=== PATIENT | male | born 1965 | race Caucasian/White ===

== ENCOUNTER 2023-11-04 15:52 | Outpatient (OUT) | payer BC, SELFPAY ==
--- NOTE | 2023-11-04 15:54 | US_ITS ---
The [address] [address] Patient Name: KAYDEN ARMSTRONG MRN: [id number] date: 1965 Sex: M Assigned Patient Location: US Current Patient Location: Accession/Order Number: [id number] Exam Date: 11/04/2023 16:00 Report Date: 11/07/2023 05:58 At the request of: SHAUN SALTER Procedure: US chest EXAM: US chest HISTORY: subcutaneous mass R22.9 COMPARISON: None. TECHNIQUE: Percutaneous ultrasound of right chest in area of palpable lump. FINDINGS: Within the subcutaneous fat of the upper medial right anterior chest wall is a 1.2 x 1.2 x 0.7 cm oval smoothly marginated hypoechoic/heterogeneous mass without significant internal blood flow. US/US chest IMPRESSION: 1. Mass within subcutaneous fat of the upper medial anterior right chest wall which corresponds to patient's palpable lump; nonspecific but favors a lipoma. Ultrasound-guided tissue sampling could be performed if clinically indicated. Electronically authenticated by: ISAC GOFF Date: 11/07/2023 05:58
== END 2023-11-04 15:53 | disposition home or self-care (01) ==
LOC: US 15:52
PROVIDERS: PCP Internal Medicine; Visit Provider Internal Medicine
DX: R22.9 Localized swelling, mass and lump, unspecified (principal)
CPT/HCPCS: 76604

== ENCOUNTER 2023-11-25 13:21 | Outpatient (OUT) | payer BC, SELFPAY ==
--- OUTSIDE RECORDS SUMMARY | 2023-11-25 13:26 | XMS_ITS | CCD ---
Author Name Unknown Address [address] [place] [address] Organization [facility] Care Team Providers Care Sap Solution Manager Consultant Name Role Phone STONE FRITZ Admitting Unavailable STONE FRITZ Attending Unavailable QASIM FAIRCHILD Referring Unavailable QASIM FAIRCHILD Primary Care Unavailable [place] Procedure Practitioner Unavailab STONE Wick Surgeon Unavailable [place] Procedure Practitioner Unavailab BOB Gonzalez Surgeon Unavailable Qasim Fairchild Unavailable DR QASIM FAIRCHILD Attending Unavailable BALL, DR DUNN Admitting Unavailable BALL, DR DUNN Primary Care Unavailable BALL, DR DUNN Primary Care Unavailable MISC, DR MONTES Attending Unavailable MISC, DR MONTES Admitting Unavailable MISC, DR MONTES Consulting Unavailable DANIEL ZELAYA Attending Unavailable Allergies Allergy Classification Reported Allergen(s) Allergy Type Date of Onset Reaction(s) Facility (3 sources) Amoxicillin Drug Allergy Unknown [facility] [employer] Other Medications Current Medications Medication Drug Class(es) Dates Sig (Normalized) Sig (Original) Dexamethasone / Neomycin / Polymyxin B (3 sources) Aminoglycoside Antibacterial, Polymyxin-class Antibacterial, Corticosteroid Start: 04-05-2016 take 1 drop(s) into the eye(s) four times daily Maxitrol 3.5-97909-7.1 1 drop into affected eye Ophthalmic Four times a day Mar, Active Start: 04-05-2016 take 1 drop(s) into the eye(s) four times daily Maxitrol 3.5-46460-9.1 1 drop into affected eye Ophthalmic Four times a day Mar, Active doxycycline hyclate 100 mg oral capsule (2 sources) Tetracycline-class Drug Start: 10-26-2023 take 1 capsule by mouth every twelve hours Doxycycline Hyclate 100 MG 1 capsule Orally Twice a day for 7 days Sep, Active 0.5 ml ustekinumab 90 mg/ml prefilled syringe (3 sources) Interleukin-12 Antagonist, Interleukin-23 Antagonist Stelara 45 MG/0.5ML Subcutaneous Active varenicline 1 mg oral tablet (6 sources) Partial Cholinergic Nicotinic Agonist Start: 01-04-2023 Varenicline Tartrate 0.5 MG X 11 & 1 MG X 42 1 tablet Orally as directed for 30 days Dec, Active Problems Active Problems Problem Classification Problem Date Documented Da te Episodic/Chronic Acute bronchitis (1 source) Acute bronchitis due to other specified organisms Episodic E Codes: Unspecified (2 sources) Activity, underwater diving and snorkeling; Translations: [Activity, underwater diving and snorkeling] Episodic Genitourinary symptoms and ill-defined conditions (1 source) Nocturia Episodic Hyperplasia of prostate (6 sources) Nocturia due to benign prostatic hypertrophy; Translations: [Benign prostatic hyperplasia with lower urinary tract symptoms] Onset: 04-25-2018 Chronic Nausea and vomiting (2 sources) Bilious vomiting; Translations: [Bilious vomiting] Episodic Other circulatory disease (2 sources) Elevated blood-pressure reading without diagnosis of hypertension; Translations: [Elevated blood-pressure reading, without diagnosis of hypertension] Episodic Other inflammatory condition of skin (5 sources) Psoriasis; Translations: [Psoriasis, unspecified] Chronic Other inflammatory condition of skin (4 sources) Other psoriasis; Translations: [OTHER PSORIASIS] Onset: 02-12-2022 Chronic Other non-traumatic joint disorders (2 sources) Shoulder joint pain; Translations: [Pain in right shoulder] Episodic Other nutritional; endocrine; and metabolic disorders (3 sources) Lipoprotein deficiency disorder; Translations: [Lipoprotein deficiency] Chronic Other nutritional; endocrine; and metabolic disorders (3 sources) Obese class I; Translations: [Obesity, unspecified] Chronic Other nutritional; endocrine; and metabolic disorders (1 source) Obesity, unspecified Chronic Other nutritional; endocrine; and metabolic disorders (2 sources) Body mass index 30+ - obesity; Translations: [Body mass index (BMI) 30.0-30.9, adult] Chronic Other nutritional; endocrine; and metabolic disorders (2 sources) Simple obesity ; Translations: [Other obesity due to excess calories] Onset: 02-18-2014 Chronic Other skin disorders (2 sources) Disorder of skin and/or subcutaneous tissue; Translations: [Disorder of the skin and subcutaneous tissue, unspecified] Episodic Other skin disorders (1 source) Localized swelling, mass and lump, unspecified Episodic Otitis media and related conditions (5 sources) Salpingitis of left eustachian tube; Translations: [Unspecified Eustachian salpingitis, left ear] Episodic Residual codes; unclassified (3 sources) Tobacco use; Translations: [Tobacco use and exposure] Episodic Substance-related disorders (9 sources) Nicotine dependence; Translations: [Nicotine dependence, cigarettes, uncomplicated] Chronic Past or Other Problems Problem Classification Problem Date Documented Da te Episodic/Chronic Other aftercare (1 source) Other half-way (current) drug therapy; Translations: [OTH 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 SUPERVISOR CURRENT DRUG THERAPY] Onset: 02-17-2022 Episodic Other skin disorders (2 sources) Vesicular eczema of hands and/or feet; Translations: [Dyshidrosis] Onset: 02-18-2014 Episodic Residual codes; unclassified (4 sources) Tobacco user; Translations: [Tobacco use] Onset: 02-18-2014 Episodic Results Test Name Value Interpretation Reference Range Facility QUANTIFERON TB GOLD PLUSon 0 02-16-2022 QuantiFERON Criteria Comment Normal [facility] Comment on above: Result Comment: The QuantiFERON-TB Gold Plus result is determined by subtracting the Nil value from either TB antigen (Ag) tube. The mitogen tube serves as a control for the test. Performed By: #### Q NTTB #### [facility] [address] [place] [address] Dr. Graham Babcock QuantiFERON Incubation Incubation performed. Normal [facility] Comment on above: Performed By: #### Q NTTB #### [facility] [address] [place] [address] Dr. Graham Babcock QuantiFERON Mitogen Value >10.00 [facility] Comment on above: Performed By: #### Q NTTB #### [facility] [address] [place] [address] Dr. Graham Babcock QuantiFERON Nil Value 0.11 IU/mL [facility] Comment on above: Performed By: #### Q NTTB #### [facility] [address] [place] [address] Dr. Graham Babcock QuantiFERON TB1 Ag Value 0.12 IU/mL Normal [facility] Comment on above: Performed By: #### Q NTTB #### [facility] [address] [place] [address] Dr. Graham Babcock QuantiFERON TB2 Ag Value 0.11 IU/mL Normal [facility] Comment on above: Performed By: #### Q NTTB #### [facility] [address] [place] [address] Dr. Graham Babcock QuantiFERON-TB Gold Plus Negative Normal Negative [facility] Comment on above: Result Comment: Chem iluminescence immunoassay methodology Performed By: #### Q NTTB #### [facility] [address] [place] [address] Dr. Graham Babcock JOSÉDEMETRICE RIGHT (CALCANEOUS)o n 10-15-2019 RAHAT RIGHT (CALCANEOUS) [facility] Department of Radiology [address] [place] [id number] ======== Patient Name: KAYDEN ARMSTRONG : 1965 Sex: M Age: Race: White Pt. Location: Patient Status: O Ordered Date: 10/15/2019 8:15:00 AM Completed Date: 10/15/2019 08:14 AM Requesting Provider: MILLER MERINO Attending Provider: MILLER MERINO Report Copy To: QASIM FAIRCHILD Signs & Symptoms: S92.061A Displaced intraarticular fracture of right calcaneus, init I10 History: Mary Comments: , , , Ordering Provider - MILLER MERINO PA-C , Exam: OSCROMEO RIGHT (CALCANEOUS) ======== OSCALSIS RIGHT (CALCANEOUS) 10/15/2019 8:14 AM EST SIGNS AND SYMPTOMS: S92.061A Displaced intraarticular fracture of right calcaneus, init I10 TECHNOLOGIST COMMENTS: ortho follow up rt oscalsis fracture with hardware 07/24/2018 QUESTION FOR THE RADIOLOGIST: , , , Ordering Provider - MILLER MERINO PA-C , PROTOCOL: Axial and Lateral views were obtained. COMPARISON: September 18, 2019 FINDINGS: Soft tissues: Persistent swelling including at the Achilles insertion with some heterotopic ossification Bones: The 2 large calcaneal screws have been removed probably transverse screws remain Joints: Pes cavus without weightbearing IMPRESSION: 1. Postoperative calcaneal screw removal appears to be healing 2. Transverse screws remain 3. Lydia deformity Electronically signed by:Jeferson Cooper. Transcribed by: [email or web address], User Resident: Electronically Signed by: JEFERSON COOPER @ 10/15/2019 12:07 PM Normal [facility] Comment on above: Order Comment: , , = ========= , Ordering Provider - MILLER MERINO PA-C , *ANAEROBIC CULTUREon 019 *ANAEROBIC CULTURE Clinical Report: (D) Specimen/Source: SWAB/INTRAOP SPEC Collected: 10/01/2019 13:12 Status: Final Last Updated: 10/06/2019 10:40 (1) #1 R. CALCANEUS SCREW SITE ISO (Final) No Anaerobes Isolated 5 Days Normal [facility] Comment on above: Order Comment: , , = ========= , Ordering Provider - MILLER MERINO PA-C , Performed By: #### 3 0312 ####[facility] *WOUND CULTUREon 10-01-2019 *WOUND CULTURE Clinical Report: (D) Specimen/Source: WOUND/INTRAOP SPEC Collected: 10/01/2019 13:12 Status: Final Last Updated: 10/04/2019 08:39 (1) #1 R. CALCANEUS SCREW SITE GRAM (Final) Rare Polys No Bacteria Seen ISO (Final) Rare Growth Enterobacter cloacae complex ISO (Final) Rare Growth Klebsiella variicola ISOLATE: ISOLATE: Enterobacter cloacae Klebsiella variicola complex -- -- AROLDO (mcg/ml) AMP./SULBAC (AMS) 4/2 Resistant 4/2 Susceptible AMPICILLIN (AM) >16 Resistant 8 Resistant AZTREONAM (AZM) <=1 Susceptible AZTREONAM (AZM) <=1 Susceptible CEFAZOLIN (CZ) >32 Resistant <=1 Susceptible CEFTRIAXONE (ARCHITECTURAL EXAMINER) <=0.5 Susceptible <=0.5 Susceptible CIPROFLOXACIN (CIP) <=0.5 Susceptible <=0.5 Susceptible GENTAMICIN (GM) 1 Susceptible 1 Susceptible PIP/TAZO (TZP) <=2/4 Susceptible PIP/TAZO (TZP) 4/4 Susceptible TOBRAMYCIN (TOB) <=0.5 Susceptible <=0.5 Susceptible TRIMETH/SULFA (SXT) <=0.5/9.5 Susceptible <=0.5/9.5 Susceptible Antibiotic Summary Grid: AMS AM AZM CZ ARCHITECTURAL EXAMINER CIP GM TZP TOB SXT Enterobacter R R S R S S S S S S cloacae complex Klebsiella S R S S S S S S S S variicola Normal [facility] Comment on above: Order Comment: , , = ========= , Ordering Provider - MILLER MERINO PA-C , Performed By: #### 3 0343 ####[id number] [place] [address] OSCALSIS RIGHT(CALCANEOUS)on 10-01-2019 OSCALSIS RIGHT(CALCANEOUS) [facility] Department of Radiology [address] [place] [id number] ======== Patient Name: KAYDEN ARMSTRONG : 1965 Sex: M Age: Race: White Pt. Location: Patient Status: O Ordered Date: 10/01/2019 7:10:00 AM Completed Date: 10/01/2019 01:20 PM Requesting Provider: STONE FRITZ Attending Provider: STONE FRITZ Report Copy To: Signs & Symptoms: Hardware removal right calcaneous with History: Hardware removal right calcaneous with Comments: Hardware removal right calcaneous with Exam: OSCALSIS RIGHT(CALCANEOUS) ======== OSCALSIS RIGHT(CALCANEOUS) 10/01/2019 1:20 PM EST SIGNS AND SYMPTOMS: Hardware removal right calcaneous with TECHNOLOGIST COMMENTS: hardware removal Dr. Fritz 52 seconds fluoro time QUESTION FOR THE RADIOLOGIST: Hardware removal right calcaneous with PROTOCOL: Axial and Lateral views were obtained. COMPARISON: September 18 FINDINGS: 8 images were obtained. Fluoroscopy as noted above. IMPRESSION: For documentation. Electronically signed by:Harini Cortes. Transcribed by: [email or web address], User Resident: Electronically Signed by: HARINI CORTES @ 10/01/2019 03:48 PM Normal [facility] Comment on above: Order Comment: , , = ========= , Ordering Provider - MILLER MERINO PA-C , Operative Reporton 9 Operative Report MR#: [id number] S [facility] Pt. Name: Kayden Armstrong Room #: 0C Discharge Date: Birthdate: 1965 OPERATIVE REPORT DATE OF SURGERY: 10/01/2019 SURGEON: Stone Fritz M.D. ASSISTANTS: 1. Kail Paul M.D. 2. Benjamin Baker M.D. PREOPERATIVE DIAGNOSIS: Right calcaneus fracture, status post open reduction and internal fixation with retained hardware. POSTOPERATIVE DIAGNOSIS: Right calcaneus fracture, status post open reduction and internal fixation with retained hardware. PROCEDURE PERFORMED: Right calcaneus hardware removal. ANESTHESIA: General. FLUIDS: Per anesthesia records. EBL: Minimal. DRAINS: None. COMPLICATIONS: None. SPECIMENS: Swab screw tracts sent for culture. EXPLANTS: Luis 6.5 partially-threaded cannulated screws x2. OPERATIVE INDICATIONS: This is a 53-year-old male who sustained a right calcaneus fracture in July 2018, which was treated with open reduction and internal fixation. He was recently seen back in our clinic at which time radiographs demonstrated lucency surrounding the long 6.5 screws and therefore, decision was made to proceed with hardware removal as well as swab to rule out infection. DESCRIPTION OF PROCEDURE: The patient arrived to the preoperative holding area, where he was met by the surgical team and the operative site was marked. He was subsequently met by the anesthesia staff where he was brought back to the operating room, placed supine on the operative table. A tourniquet was applied and the right leg was prepped and draped in normal sterile fashion. A time-out was then called indicating the patient's name, laterality, and procedure to be performed. Two 6.5 mm Luis partially-threaded screws were identified using intraoperative fluoroscopy. The guidewires were used percutaneously and were placed down the cannulated screws. A single incision was then made connecting both of the guidewires and dissection was carried down to the screw heads. The screws were subsequently removed. The screw tracts were then swabbed and the swab was sent for culture. The wound was then copiously irrigated with Betadine and normal saline. The incision was then closed using 4-0 Novafil. This was then dressed with Xeroform, 4x4s, Kerlix, and an Adryan wrap. The patient was subsequently awakened from anesthesia and transferred to PACU for additional management. Dr. Fritz was present for the entirety of the procedure. POSTOPERATIVE PLAN: The patient will be weightbearing as tolerated to the right lower extremity. We will send him with a 10-day course of antibiotics prophylactically. I will follow up wound cultures and plan to see him back in clinic in approximately 10 days for repeat postop evaluation. Electronically Signed by: Stone Fritz M.D. 10/02/2019 05:41 P Stone Fritz M.D. I was present for the perez and critical portions and I was otherwise immediately available to assist. Date Dict: 10/01/2019/01:32 P/Kali Paul MD Date Trans: 10/01/2019 03:18 P/shaun [id number] cc: Qasim Fairchild D.O. [address] [place] [phone] Normal [facility] POC GLUCOSE LABon 10-01-2019 Glucose [Mass/Vol] 99 mg/dL Normal 70-100 [facility] Comment on above: Performed By: #### 8 5499 ####[facility] APTTon 09-18-2019 aPTT Coag (Bld) [Time] 31.1 s Normal 25.0-35.0 [facility] Comment on above: Result Comment: ALL RESULTS MUST BE INTERPRETED WITH RESPECT TO BLOOD DRAWING ARTIFACT OR DILUTION ERROR OF ANTICOAGULANT AT THE TIME OF SAMPLING. THE APTT SHOULD NOT BE USED TO MONITOR UNFRACTIONATED HEPARIN THERAPY, THIS LABORATORY NO LONGER HAS AN ESTABLISHED THERAPEUTIC RANGE BASED ON THE APTT. IT IS RECOMMENDED THAT THE [facility] - HEPARIN ASSAY (ANTI-XA ACTIVITY) BE USED FOR THIS PURPOSE. Performed By: #### 5 7307, 58867 #### [facility] [address] [place] [address], [facility] BASIC METABOLIC PANELon 11- Calcium [Mass/Vol] 9.6 mg/dL Normal 8.6-10.3 [facility] Comment on above: Performed By: #### 0 0071 #### [facility] [address] [place] [address], [place] Chloride [Moles/Vol] 102 mmol/L Normal 98-107 [facility] Comment on above: Performed By: #### 0 0071 #### [facility] [address] [place] [address], [place] CO2 [Moles/Vol] 27 mmol/L Normal 21-31 [facility] Comment on above: Performed By: #### 0 0071 #### [facility] [address] [place] [address], [place] Creatinine [Mass/Vol] 1.21 mg/dL Normal 0.70-1.30 [facility] Comment on above: Performed By: #### 0 0071 #### [facility] [address] [facility] [address], [place] GFR/1.73 sq M predicted among blacks MDRD (S/P/Bld) [Vol rate/Area] mL/min/{1.73_m2} Normal >60 [facility] Comment on above: Performed By: #### 0 0071 #### [facility] [address] [place] [address], [place] GFR/1.73 sq M predicted among non-blacks MDRD (S/P/Bld) [Vol rate/Area] mL/min/{1.73_m2} Normal >60 [facility] Comment on above: Performed By: #### 0 0071 #### [facility] [address] [place] [address], [place] Glucose [Mass/Vol] 86 mg/dL Normal 70-100 [facility] Comment on above: Performed By: #### 0 0071 #### [facility] [address] [place] [address], [facility] Potassium [Moles/Vol] 4.0 mmol/L Normal 3.5-5.1 [facility] Comment on above: Performed By: #### 0 0071 #### [facility] [address] [place] [address], [facility] Sodium [Moles/Vol] 135 mmol/L Low 136-145 [facility] Comment on above: Performed By: #### 0 0071 #### [facility] [address] [place] [address], [facility] Urea nitrogen [Mass/Vol] 13 mg/dL Normal 7-25 [facility] Comment on above: Performed By: #### 0 0071 #### [facility] [address] [place] [address], [facility] C REACTIVE PROTEINon 019 CRP [Mass/Vol] 2.8 mg/L Normal 0.0-7.0 [facility] Comment on above: Performed By: #### 6 1405 ####[facility] CBC W/DIFFon 09-18-2019 ABS BASOPHILS 0.1 10*3/uL Normal 0.0-0.2 [facility] Comment on above: Performed By: #### 5 0103, [id number] #### [facility] [address] [place] [address], [facility] ABS IMM GRANS 0.0 10*3/uL Normal 0.0-0.2 [facility] Comment on above: Performed By: #### 5 0103, 55769 #### [facility] [address] [place] [address], [facility] ABS NEUTROPHILS 4.6 10*3/uL Normal 1.6-7.6 [facility] Comment on above: Performed By: #### 5 102, 18352 #### [facility] [address] [place] [address], [facility] Basophils/100 WBC (Bld) 0.6 % Normal 0.0-1.0 [facility] Comment on above: Performed By: #### 5 102, 67322 #### [facility] [address] [place] [address], [facility] Eosinophils (Bld) [#/Vol] 0.2 10*3/uL Normal 0.0-0.5 [facility] Comment on above: Performed By: #### 5 102, 31019 #### [facility] [address] [place] [address], [facility] Eosinophils/100 WBC (Bld) 2.2 % Normal 0.0-6.0 [facility] Comment on above: Performed By: #### 102, 26803 #### [facility] [address] [address], [facility] Erythrocyte distribution width (RBC) [Ratio] 13.2 % Normal 11.5-15.0 [facility] Comment on above: Performed By: #### 5 102, 41467 #### [facility] [address] [address], [facility] Hematocrit (Bld) [Volume fraction] 46.7 % Normal 39.0-50.0 [facility] Comment on above: Performed By: #### 5 102, 86904 #### [facility] [address] [address], [facility] Hemoglobin (Bld) [Mass/Vol] 15.8 g/dL Normal 13.0-17.0 [facility] Comment on above: Performed By: #### 102, 50729 #### [facility] [address] [place] [address], [facility] IMMATURE GRANS 0.2 % Normal 0.0-1.0 The [facility] Comment on above: Performed By: #### 5 102, 76136 #### [facility] [address] Lymphocytes (Bld) [#/Vol] 2.3 10*3/uL Normal 1.2-4.0 [facility] Comment on above: Performed By: #### 5 102, 10982 #### [facility] [address] [facility] [address] Lymphocytes/100 WBC (Bld) 28.1 % Normal 20.0-45.0 [facility] Comment on above: Performed By: #### 5 102, 94415 #### [facility] [address] [facility] [address] MCH (RBC) [Entitic mass] 30.0 pg Normal 27.0-33.0 [facility] Comment on above: Performed By: #### 5 102, 80965 #### [facility] [address] [facility] [address] MCHC (RBC) [Mass/Vol] 33.8 g/dL Normal 32.0-35.0 [facility] Comment on above: Performed By: #### 5 102, 95358 #### [facility] [address] [facility] [place] [address], [facility] MCV (RBC) [Entitic vol] 88.6 fL Normal 82.0-98.0 [facility] Comment on above: Performed By: #### 5 102, 81083 #### [facility] [address] [facility] [place] [address], [facility] Monocytes (Bld) [#/Vol] 1.0 10*3/uL Normal 0.1-1.0 [facility] Comment on above: Performed By: #### 102, 44917 #### [facility] [address] [place] [address], [facility] MONOS 12.3 % High 5.0-12.0 [facility] Comment on above: Performed By: #### 5 010, 71141 #### [facility] [address] [place] [address], [facility] Neutrophils/100 WBC (Bld) 56.6 % Normal 40.0-72.0 [facility] Comment on above: Performed By: #### 5 102, 94721 #### [facility] [address] [place] [address], [facility] Nucleated RBC/100 WBC (Bld) [Ratio] 0 % Normal 0-0 [facility] Comment on above: Performed By: #### 5 102, 45286 #### [facility] [address] [place] [address], [facility] PLAT CNT 237 10*3/uL Normal 150-400 [facility] Comment on above: Performed By: #### 5 102, 72545 #### [facility] [address] [place] [address], [facility] RBC (Bld) [#/Vol] 5.27 10*6/uL Normal 4.20-5.70 The [facility] Comment on above: Performed By: #### 5 102, 04168 #### [facility] [address] [place] [address], [facility] WBC (Bld) [#/Vol] 8.11 10*3/uL Normal 4.00-10.60 [facility] Comment on above: Performed By: #### 5 102, 96885 #### [facility] [address] [place] [address], [facility] OSCALSIS RIGHT (CALCANEOUS)o n 09-18-2019 OSCALSIS RIGHT (CALCANEOUS) [facility] Department of Radiology [address] [place] [phone] ======== Patient Name: KAYDEN ARMSTRONG : 1965 Sex: M Age: Race: White Pt. Location: 84 Patient Status: O Ordered Date: 09/18/2019 1:25:00 PM Completed Date: 09/18/2019 01:34 PM Requesting Provider: MILLER MERINO Attending Provider: MILLER MERINO Report Copy To: SELF, REFERRED Signs & Symptoms: S92.061A Displaced intraarticular fracture of right calcaneus, init I10 History: [place] Comments: , , , Ordering Provider - MILLER MERINO PA-C , Exam: RAHAT RIGHT (CALCANEOUS) ======== OSCALSIS RIGHT (CALCANEOUS) 09/18/2019 1:34 PM EST SIGNS AND SYMPTOMS: S92.061A Displaced intraarticular fracture of right calcaneus, init I10 TECHNOLOGIST COMMENTS: right post. calcaneous pain patient states possible infection surgery - QUESTION FOR THE RADIOLOGIST: , , , Ordering Provider - MILLER MERINO PA-C , PROTOCOL: Axial and Lateral views were obtained. COMPARISON: April 25, 2019 FINDINGS: Screw fixation in the calcaneus is present. The underlying calcaneal fractures not visualized at this time. IMPRESSION: Satisfactory postop appearance to right calcaneus post-ORIF. Electronically signed by:Saúl Olea. Transcribed by: [email or web address], User Resident: Electronically Signed by: SAÚL TIARA @ 09/18/2019 02:50 PM Normal [facility] Comment on above: Order Comment: , , = ========= , Ordering Provider - MILLER MERINO PA-C , PROTHROMBIN TIMEon 9 INR Coag (PPP) [Relative time] 1.01 {INR} Normal 0.91-1.16 [facility] Comment on above: Result Comment: ACCC P RECOMMENDED INR FOR WARFARIN THERAPY ------ ------- CONDITION INR PROPHYLAXIS OF VENOUS THROMBOSIS 2-3 (HIGH-RISK SURGERY) TREATMENT OF VENOUS THROMBOSIS 2-3 TREATMENT OF PULMONARY EMBOLISM 2-3 PREVENTION OF SYSTEMIC EMBOLISM: 2-3 ACUTE MYOCARDIAL INFARCTION TISSUE HEART VALVES VALVULAR HEART DISEASE ATRIAL FIBRILLATION RECURRENT SYSTEMIC EMBOLISM MECHANICAL HEART VALVE 2.5-3.5 FROM: ORAL ANTICOAGULANTS. MECHANISM OF ACTION, CLINICAL EFFECTIVENESS, AND OPTIMAL THERAPEUTIC RANGE. CHEST 1995;108:231S-246S. Performed By: #### 5 [id number], [id number] #### [facility] [address] [place] [address], [facility] PT Coag (PPP) [Time] 13.3 s Normal 12.3-14.8 [facility] Comment on above: Result Comment: ALL RESULTS MUST BE INTERPRETED WITH RESPECT TO BLOOD DRAWING ARTIFACT OR DILUTION ERROR OF ANTICOAGULANT AT THE TIME OF SAMPLING. Performed By: #### 5 [id number], [id number] #### [facility] [address] [place] [address], [place] SEDIMENTATION RATEon 019 SED RATE 5 mm/hr Normal 0-10 [facility] Comment on above: Performed By: #### 5 [id number], [id number] #### [place] [address], [facility] OSCROMEO RIGHT (CALCANEOUS)o n 04-25-2019 OSCROMEO RIGHT (CALCANEOUS) [facility] Department of Radiology [address] [place] [id number] ======== Patient Name: KAYDEN ARMSTRONG : 1965 Sex: M Age: Race: White Pt. Location: Patient Status: O Ordered Date: 04/25/2019 1:25:00 PM Completed Date: 04/25/2019 01:32 PM Requesting Provider: MLILER MERINO Attending Provider: MILLER MERINO Report Copy To: Signs & Symptoms: S92.061A Displaced intraarticular fracture of right calcaneus, init I10 History: [place] Comments: , , , Ordering Provider - MILLER MERINO PA-C , Exam: RAHAT RIGHT (CALCANEOUS) ======== RAHAT RIGHT (CALCANEOUS) 04/25/2019 1:32 PM EDT SIGNS AND SYMPTOMS: S92.061A Displaced intraarticular fracture of right calcaneus, init I10 TECHNOLOGIST COMMENTS: History of right calcaneous surgery 07/28/2018. Patient complains of right heel pain. Ortho follow up. QUESTION FOR THE RADIOLOGIST: , , , Ordering Provider - MILLER MERINO PA-C , PROTOCOL: Axial and Lateral views were obtained. COMPARISON: January 24, 2019 FINDINGS: Soft tissues: Similar Bones: Similar Joints: Similar IMPRESSION: 1. Screw fixation of healing calcaneal fracture 2. Insertional Achilles tendinopathy Electronically signed by:Jeferson Cooper. Transcribed by: [email or web address], User Resident: Electronically Signed by: JEFERSON COOPER @ 04/25/2019 02:10 PM Normal [facility] Comment on above: Order Comment: , , = ========= , Ordering Provider - MILLER MERINO PA-C , OSCALSIS RIGHT (CALCANEOUS)o n 01-24-2019 OSCALSIS RIGHT (CALCANEOUS) [facility] Department of Radiology [address] [place] [id number] ======== Patient Name: KAYDEN ARMSTRONG : 1965 Sex: M Age: Race: White Pt. Location: Patient Status: Ordered Date: 01/24/2019 1:35:00 PM Completed Date: 01/24/2019 01:39 PM Requesting Provider: MILLER MERINO Attending Provider: Report Copy To: Signs & Symptoms: S92.061A Displaced intraarticular fracture of right calcaneus, init I10 History: [place] Comments: , , , Ordering Provider - MILLER MERINO PA-C , Exam: OSCALSIS RIGHT (CALCANEOUS) ======== OSCALSIS RIGHT (CALCANEOUS) 01/24/2019 1:39 PM EDT SIGNS AND SYMPTOMS: S92.061A Displaced intraarticular fracture of right calcaneus, init I10 TECHNOLOGIST COMMENTS: right calcaneous pain surgery - f/u QUESTION FOR THE RADIOLOGIST: , , , Ordering Provider - MILLER MERINO PA-C , PROTOCOL: Axial and Lateral views were obtained. COMPARISON: December 13, 2018 FINDINGS: Soft tissues: Mild swelling Bones: Screw fixation of healing calcaneal fracture in good alignment, similar to prior Large heel spurs particularly at Achilles insertion with soft tissue thickening consistent with Lydia deformity Joints: Relatively mild arthritis Midfoot cavus without weightbearing IMPRESSION: 1. Screw fixation of healing calcaneal fracture 2. Lydia deformity with Achilles insertional thickening Electronically signed by:Jeferson Cooper. Transcribed by: [email or web address], User Resident: Electronically Signed by: JEFERSON COOPER @ 01/24/2019 01:49 PM Normal [facility] Comment on above: Order Comment: , , = ========= , Ordering Provider - MILLER MERINO PA-C , OSCALSIS RIGHT (CALCANEOUS)o n 12-13-2018 OSCALSIS RIGHT (CALCANEOUS) [facility] Department of Radiology [address] [place] [phone] ======== Patient Name: KAYDEN ARMSTRONG : 1965 Sex: M Age: Race: White Pt. Location: 84 Patient Status: Ordered Date: 12/13/2018 2:30:00 PM Completed Date: 12/13/2018 02:31 PM Requesting Provider: MILLER MERINO Attending Provider: Report Copy To: Signs & Symptoms: S92.061A Displaced intraarticular fracture of right calcaneus, init I10 History: [place] Comments: , , , Ordering Provider - MILLER MERINO PA-C , Exam: OSCALSIS RIGHT (CALCANEOUS) ======== OSCALSIS RIGHT (CALCANEOUS) 12/13/2018 2:31 PM EST SIGNS AND SYMPTOMS: S92.061A Displaced intraarticular fracture of right calcaneus, init I10 TECHNOLOGIST COMMENTS: surgery to right calcaneous Jul 2018 complains of having pain again in right calcaneous QUESTION FOR THE RADIOLOGIST: , , , Ordering Provider - MILLER MERINO PA-C , PROTOCOL: Axial and Lateral views were obtained. COMPARISON: November 01, 2018 FINDINGS: Soft tissues: Mild swelling Bones: Calcaneal fracture fixed by screws in satisfactory alignment similar to prior Joints: Mild subtalar osteoarthritis Large calcaneal enthesophyte including at the Achilles tendon insertion with thickening consistent with so-called Lydia deformity IMPRESSION: 1. Healing calcaneal fracture with mild subtalar arthritis 2. Lydia deformity with Achilles insertional thickening Electronically signed by:Jeferson Cooper. Transcribed by: [email or web address], User Resident: Electronically Signed by: JEFERSON COOPER @ 12/13/2018 03:46 PM Normal [facility] Comment on above: Order Comment: , , = ========= , Ordering Provider - MILLER MERINO PA-C , OSCALSIS RIGHT (CALCANEOUS)o n 11-01-2018 OSCALSIS RIGHT (CALCANEOUS) [facility] Department of Radiology [address] [place] [phone] ======== Patient Name: KAYDEN ARMSTRONG : 1965 Sex: M Age: Race: White Pt. Location: Patient Status: Ordered Date: 11/01/2018 1:30:00 PM Completed Date: 11/01/2018 01:34 PM Requesting Provider: MILLER MERINO Attending Provider: Report Copy To: Signs & Symptoms: S92.061A Displaced intraarticular fracture of right calcaneus, init I10 History: [place] Comments: , , , Ordering Provider - MILLER MERINO PA-C , Exam: RAHAT BASSETT (CALCANEOUS) ======== RAHAT RIGHT (CALCANEOUS) 11/01/2018 1:34 PM EST SIGNS AND SYMPTOMS: S92.061A Displaced intraarticular fracture of right calcaneus, init I10 TECHNOLOGIST COMMENTS: ortho check for right heel area QUESTION FOR THE RADIOLOGIST: , , , Ordering Provider - MILLER MERINO PA-C , PROTOCOL: Axial and Lateral views were obtained. COMPARISON: September 18, 2018 FINDINGS: Soft tissues: Mild swelling Bones: Calcaneal fracture fixation in good alignment with early healing response Joints: Minor subtalar arthritis Heel spurs Pes cavus on nonweightbearing view IMPRESSION: Healing calcaneal fracture with screw fixation in good alignment Electronically signed by:Jeferson Cooper. Transcribed by: [email or web address], User Resident: Electronically Signed by: JEFERSON COOPER @ 11/01/2018 02:02 PM Normal [facility] Comment on above: Order Comment: , , = ========= , Ordering Provider - MILLER MERINO PA-C , Vital Signs Date Time Vital Sign Value Performing Clinician Facility 10-26-2023 15:15-0500 Body height 182.88 cm Qasim Ball Other [facility] Other 10-26-2023 15:15-0500 Body mass index (BMI) [Ratio] 31.46 kg/m2 Qasim Ball Other [facility] Other 10-26-2023 15:15-0500 Body weight 105.24 kg Qasim Ball Other [facility] Other 10-26-2023 15:15-0500 Diastolic blood pressure 87 mm[Hg] Qasim Ball Other [facility] Other 10-26-2023 15:15-0500 Respiratory rate 12 /min Qasim Ball Other [facility] Other 10-26-2023 15:15-0500 Systolic blood pressure 126 mm[Hg] Qasim Ball Other [facility] Other 01-04-2023 09:30-0500 Body height 182.88 cm Qasim Ball Other [facility] Other 01-04-2023 09:30-0500 Body mass index (BMI) [Ratio] 31.22 kg/m2 Qasim Ball Other [facility] Other 01-04-2023 09:30-0500 Body weight 104.42 kg Qasim Ball Other [facility] Other 01-04-2023 09:30-0500 Diastolic blood pressure 78 mm[Hg] Qasim Gurinder Other [facility] Other 01-04-2023 09:30-0500 Respiratory rate 12 /min Qasim Gurinder Other [facility] Other 01-04-2023 09:30-0500 Systolic blood pressure 122 mm[Hg] Qasim Fairchild Other [facility] Other Encounters Encounter Date Encounter Type Care Provider Facility Start: 11-17-2023 End: 11-17-2023 ambulatory DANIEL Otilio ZELAYA Not Available Start: 11-08-2023 End: 11-08-2023 ambulatory Qasim Fairchild Other [facility] Other Start: 11-08-2023 Telephone encounter Qasim Fairchild [facility] Start: 10-26-2023 End: 10-26-2023 ambulatory Qasim Fairchild Other [facility] Other Start: 10-26-2023 Office outpatient vi sit 15 minutes Qasim Fairchild [facility] Start: 02-04-[address] QASIM FAIRCHILD Facili ty:[facility] Start: 01-04-2023 End: 01-04-2023 ambulatory Qasim Fairchild Other [facility] Other Start: 01-04-2023 Encounter for genera l adult medical examination without abnormal findings Qasim Fairchild [facility] Start: 01-04-2023 Periodic preventive med est patient 40-64yrs Qasim Fairchild [facility] Start: 02-12-2022 End: 02-13-[address] QASIM FAIRCHILD Facility:[facility] Start: 10-01-2019 End: 10-02-2019 Patient encounter procedure STONE FRITZ Facility:[facility] Procedures Date Procedure Procedure Detail Performing Clinician Start: 10-01-2019 ANESTH LOWER LEG BONE SURG BOB CARRERO Start: 10-01-2019 REMOVAL OF SUPPORT IMPLANT STONE FRITZ Start: 04-25-2018 General examination of patient Qasim Fairchild Other Immunizations Immunization Date Immunization Notes Care Provider Jelly anthony 04-05-2016 tetanus toxoid, reduced diphtheria toxoid, and acellular pertussis vaccine, adsorbed Qasim Fairchild Other [facility] Other Payers Date Payer Category Payer Private Health Insurance [id number] 1965 Unknown [id number] 1965 Unknown [id number] 1965 Unknown [id number] 1965 Unknown [id number] [id number] 1958 [facility] [id number] 1958 Self-pay Social History Date Type Detail Facility Sex Assigned At [facility] Other Evaluation note 10-26-2023 Note Date & Type Note Facility 10-26-2023 Evaluation note Encounter Date Diagnosis Assessment Notes Sep, Acute bronchitis due to other specified organisms (ICD-10 - J20.8) Instructed to use Robitussin or Mucinex for cough, saline or Flonase NS for congestion, Tylenol for pain and fever. Sep, Subcutaneous mass (ICD-10 - R22.9) This is not involving the breast. Shevlin sized SC mass, smooth, mobile and nontender. N [facility] Other Evaluation note 01-04-2023 Note Date & Type Note Facility 01-04-2023 Evaluation note Encounter Date Diagnosis Assessment Notes Dec, Wellness examination (ICD-10 - Z00.00) Healthy diet and exercise. Reviewed age-appropriat e preventive testing recommended. Dec, Nocturia (ICD-10 - R35.1) Dec, Benign prostatic hyperplasia with lower urinary tract symptoms (ICD-10 - N40.1) Yearly PSA and DOMINGA Dec, Obesity (BMI 30.0-34.9) (ICD-10 - E66.9) This patient has been instructed on a low-fat, high-fiber diet. They are instructed to reduce calories, portion sizes and snacks. It is recommended that they exercise for 30 minutes, 3-5 times weekly. Dec, Cigarette nicotine dependence without complication (ICD-10 - F17.210) Start age 20, 1ppd [facility] Other History general Narrative - Reported 04-25-2018 Note Date & Type Note Facility 04-25-2018 History general N arrative - Reported Type Medical History psoriasis Medical History benign prostatic hyp ertrophy without outflow obstruction 04/25/2018 Medical History tobacco use Medical History salpingitis of left eustachian t ube Surgical History shoulder surgery right 2007 Hospitalization History see surgical history [facility] Other Evaluation note Note Date & Type Note Facility Evaluation note No Information [employer] Other Summary Purpose Family History No Family History Records FoundNo Family History Records FoundNo Family History Records Found Advance Directives No Advanced Directives Records FoundNo Advanced Directives Records FoundNo Advanced Directives Records Found Additional Source Comments (unrecognized sect ion and content) No Status Records FoundNo Status Records FoundNo Status Records Found INFORMATION SOURCE (unrecogn ized section and content) DATE CREATED AUTHOR 10/26/2019 [facility] DATE CREATED AUTHOR AUTHOR'S ORGANIZ ATION 02/05/2023 [facility] DATE CREATED AUTHOR AUTHOR'S ORGANIZ ATION 11/18/2023 [facility] Specialists EPIC REASON FOR VISIT (unrecogniz ed section and content) Wellnessbump on chestUS resu lts FOR RECORDS PERTAINING TO PATIENTS WHO ARE OR HAVE BEEN ENROLLED IN A CHEMICAL DEPENDENCY/SUBSTANCEABUSE PROGRAM, SOME INFORMATION MAY BE OMITTED. This clinical summary was aggregated from multiple sources. Caution should be exercised in using it in the provision of clinical care. This summary normalizes information from multiple sources, and as a consequence, information in this document may materially change the coding, format and clinical context of patient data. In addition, data may be omitted in some cases. CLINICAL DECISIONS SHOULD BE BASED ON THE PRIMARY CLINICAL RECORDS. [facility]. provides no warranty or guarantee of the accuracy or completeness of information in this document.
[2023-11-29 13:09] LABS: QuantiFERON-TB Gold Plus Negative (Negative)
== END 2023-11-25 13:22 | disposition home or self-care (01) ==
LOC: LAB 13:23
PROVIDERS: PCP Internal Medicine
DX: L40.0 Psoriasis vulgaris (principal); Z79.899 Other long term (current) drug therapy
CPT/HCPCS: 36415; 86480

== ENCOUNTER 2024-11-29 06:57 | Outpatient (OUT) | payer BC, SELFPAY ==
--- NOTE | 2024-11-29 07:00 | NM_ITS ---
The [address] [address] Patient Name: KAYDEN ARMSTRONG MRN: [id number] date: 1965 Sex: M Assigned Patient Location: [place] Current [place] Location[place] Accession/Order Number: [id number] Exam Date: 11/29/2024 07:00 Report Date: 11/29/2024 12:17 At the request of: SHAUN SALTER Procedure: [place] hepatobiliary w pharm EXAMINATION: [place] hepatobiliary w pharm HISTORY: CHOLELITHIASIS, ABDOMINAL PAIN COMPARISON: No relevant comparison available. TECHNIQUE: Radionuclide hepatobiliary imaging was performed after intravenous injection of 5.1 mCi Tc-99m KRISTINE derivative with sequential acquisitions every 1 minute for one hour. Hepatobiliary imaging with gallbladder ejection fraction analysis was then performed with sequential imaging every 1 minute for 60 minutes following ingestion of 8 oz. Ensure Plus. FINDINGS: LIVER: Normal, prompt and uniform radiotracer uptake and clearing. BILIARY DUCTS: Normal radioisotopic biliary excretion. GALLBLADDER: Normal with no evidence of cystic duct obstruction. INTESTINE: Normal with no evidence of common biliary ductal obstruction. EJECTION FRACTION: 14 % within 60 minutes. (Normal EF > 38%). OTHER: Negative. [place] hepatobiliary w pharm IMPRESSION: 1. 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 Electronically authenticated by: ISAC GOFF Date: 11/29/2024 12:17
--- OUTSIDE RECORDS SUMMARY | 2024-11-29 07:00 | XMS_ITS | CCD ---
Author Organization [facility] Inform ion Partnership [facility] Care Team Providers Care Twill Cutter Name Role Phone STONE FRITZ Admitting Unavailable STONE FRITZ Attending Unavailable QASIM FAIRCHILD Referring Unavailable QASIM FAIRCHILD Primary Care Unavailable [place] Procedure Practitioner Unavailab STONE Wick Surgeon Unavailable [place] Procedure Practitioner Unavailab BOB Gonzalez Surgeon Unavailable Qasim Fairchild Unavailable DR QASIM FAIRCHILD Attending Unavailable JOIE, DR DUNN Admitting Unavailable JOIE, DR DUNN Primary Care Unavailable JOIE, DR DUNN Primary Care Unavailable MISC, DR MONTES Attending Unavailable MISC, DR MONTES Admitting Unavailable MISC, DR MONTES Consulting Unavailable Qasim Fairchild MD Primary Care Provider JENNIFER ZELAYA Attending Unavailable Allergies Allergy Classification Reported Allergen(s) Allergy Type Date of Onset Reaction(s) Facility (3 sources) Amoxicillin Drug Allergy Unknown Jamn Other Medications Current Medications Medication Drug Class(es) Dates Sig (Normalized) Sig (Original) betamethasone 0.5 mg/ml topical cream (5 sources) Corticosteroid Start: 11-17-2023 End: 11-26-2024 betamethasone dipropionate 0.05 % cream Indications: Psoriasis vulgaris (CMS/HCC) Apply to affected areas on hands and feet up to twice a day when flared, do not use one the face, groin, or underarms, 30 day supply 45 g 11/26/2024 Active ciclopirox 7.7 mg/ml topical cream (2 sources) Start: 11-26-2024 ciclopirox (Loprox) 0.77 % cream Indications: Other seborrheic dermatitis Apply thin layer to affected area on neck/chest once a day, 30 day supply 30 g 11/26/2024 Active Dexamethasone / Neomycin / Polymyxin B (3 sources) Aminoglycoside Antibacterial, Polymyxin-class Antibacterial, Corticosteroid Start: 04-05-2016 take 1 drop(s) into the eye(s) four times daily Maxitrol 3.5-09612-6.1 1 drop into affected eye Ophthalmic Four times a day Mar, Active Start: 04-05-2016 take 1 drop(s) into the eye(s) four times daily Maxitrol 3.5-55167-5.1 1 drop into affected eye Ophthalmic Four [...] as directed for 30 days Dec, Active Completed/Discontinued Medications Medication Drug Class(es) Dates Sig (Normalized) Sig (Original) 1 ml ixekizumab 80 mg/ml auto-injector (3 sources) Interleukin-17A Antagonist Start: 12-08-2023 End: 11-27-2024 inject 1 mL by subcutaneous injection once Taltz 80 MG/ML injection Indications: Psoriasis vulgaris (CMS/HCC) Inject 1 mL (80 mg) under the skin every 28 (twenty-eight) days 1 each 12/08/2023 11/27/2024 Discontinued Problems Active Problems Problem Classification Problem Date [...] Bilious vomiting; Translations: [Bilious vomiting] Episodic Other aftercare (2 sources) Taking high risk medication; Translations: [Other chcf (current) drug therapy] 11-26-2024 Episodic Other circulatory disease (2 sources) Elevated blood-pressure reading without diagnosis of hypertension; Translations: [Elevated blood-pressure reading, without diagnosis of hypertension] Episodic Other inflammatory condition of skin (5 sources) Psoriasis; Translations: [Psoriasis, unspecified] Chronic Other inflammatory condition of skin (4 sources) Other psoriasis; Translations: [OTHER PSORIASIS] Onset: 02-12-2022 Chronic Other inflammatory condition of skin (2 sources) Psoriasis vulgaris; Translations: [Psoriasis vulgaris] 11-27-2024 Chronic Other inflammatory condition of skin (2 sources) Seborrheic dermatitis; Translations: [Other seborrheic dermatitis] 11-26-2024 Episodic Other non-traumatic joint disorders (2 sources) Shoulder [...] te Episodic/Chronic Other aftercare (1 source) Other chcf (current) drug therapy; Translations: [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 The mitogen tube serves as a control for the test. Performed By: #### Q NTTB #### [facility] [address] [place] [address] Dr. Graham Babcock QuantiFERON Incubation Incubation performed. Normal [facility] Comment on above: Performed By: #### Q NTTB #### [facility] [address] [place] [address] Dr. Graham Babcock QuantiFERON Mitogen Value >10.00 Normal [facility] Comment on above: Performed By: #### Q NTTB #### [facility] [address] [place] [address] Dr. Graham Babcock QuantiFERON Nil Value 0.11 IU/mL Normal [facility] Comment on above: Performed By: #### Q NTTB #### [facility] [address] [place] [address] Dr. Graham Babcock QuantiFERON TB1 Ag Value 0.12 IU/mL Normal [facility] Comment on above: Performed By: #### Q NTTB #### [facility] [address] [place] [address] Dr. Graham Babcock QuantiFERON TB2 Ag Value 0.11 IU/mL Normal [facility] Comment on above: Performed By: #### Q NTTB #### [facility] [address] [place] [address] Dr. Graham Babcock QuantiFERON-TB Gold Plus Negative Normal Negative [facility] Comment on above: Result Comment: Chem iluminescence immunoassay methodology Performed By: #### Q NTTB #### [facility] [address] [address] [address] Graham Babcock RAHAT BASSETT (CALCANEOUS)o n 10-15-2019 RAHAT RIGHT (CALCANEOUS) [facility] Department of Radiology [address] [place] [address] ======== Patient Name: KAYDEN ARMSTRONG : 1965 Sex: M Age: Race: White Pt. Location: Patient Status: O Ordered Date: 10/15/2019 8:15:00 AM Completed Date: 10/15/2019 08:14 AM Requesting Provider: MILLER MERINO Attending Provider: MILLER MERINO Report Copy To: QASIM FAIRCHILD Signs & Symptoms: S92.061A Displaced intraarticular fracture of right calcaneus, init I10 History: [place] Comments: , , , Ordering Provider - MILLER MERINO PA-C , Exam: RAHAT BASSETT (CALCANEOUS) ======== RAHAT BASSETT (CALCANEOUS) 10/15/2019 8:14 AM EST SIGNS AND [...] deformity Electronically signed by:Jeferson Cooper. Transcribed by: [id number], User Resident: Electronically Signed by: JEFERSON COOPER @ 10/15/2019 12:[address] [facility] Comment on above: Order Comment: , , = ========= , Ordering Provider - MILLER MERINO PA-C , *ANAEROBIC CULTUREon 019 *ANAEROBIC CULTURE Clinical Report: (D) Specimen/Source: SWAB/INTRAOP SPEC Collected: 10/01/2019 13:12 Status: Final Last Updated: 10/06/2019 10:40 (1) #1 R. CALCANEUS SCREW SITE ISO (Final) No Anaerobes Isolated [address] [facility] Comment on above: Order Comment: , , = ========= , Ordering Provider - MILLER MERINO PA-C , Performed By: #### 3 0312 ####[address] *WOUND CULTUREon 10-01-2019 *WOUND CULTURE Clinical [...] CEFAZOLIN (CZ) >32 Resistant <=1 Susceptible CEFTRIAXONE (SECTION BEAMER) <=0.5 Susceptible <=0.5 Susceptible CIPROFLOXACIN (CIP) <=0.5 Susceptible <=0.5 Susceptible GENTAMICIN (GM) 1 Susceptible 1 Susceptible PIP/TAZO (TZP) <=2/4 Susceptible PIP/TAZO (TZP) 4/4 Susceptible TOBRAMYCIN (TOB) <=0.5 Susceptible <=0.5 Susceptible TRIMETH/SULFA (SXT) <=0.5/9.5 Susceptible <=0.5/9.5 Susceptible Antibiotic Summary Grid: AMS AM AZM CZ SECTION BEAMER CIP GM TZP TOB SXT Enterobacter R R S R S S S S S S cloacae complex Klebsiella S R S S S S S S S S variicola Normal [facility] Comment on above: Order Comment: , , = ========= , Ordering Provider - MILLER MERINO PA-C , Performed By: #### 3 0343 ####[address] OSCALSIS RIGHT(CALCANEOUS)on 10-01-2019 OSCALSIS RIGHT(CALCANEOUS) [facility] Department of Radiology [address] [place] [id number] ======== Patient Name: KAYDEN ARMSTRONG : [...] documentation. Electronically signed by:Harini Cortes. Transcribed by: [email or web address], User Resident: Electronically Signed by: HARINI CORTES @ 10/01/2019 03:[address] [facility] Comment on above: Order Comment: , , = ========= , Ordering Provider - MILLER MERINO PA-C , Operative Reporton 9 Operative Report MR#: [id number] [facility] Pt. Name: Kayden Armstrong Room #: 0C Discharge Date: Birthdate: 1965 OPERATIVE REPORT DATE OF SURGERY: 10/01/2019 SURGEON: Stone Fritz M.D. ASSISTANTS: 1. Kali Paul M.D. 2. Benjamin Baker M.D. PREOPERATIVE [...] P/Kali Paul MD Date Trans: 10/01/2019 03:18 P/manano [id number] cc: Qasim Fairchild D.O. [address] [place] [id number] [facility] POC GLUCOSE LABon 10-01-2019 Glucose [Mass/Vol] 99 mg/dL Normal 70-100 [facility] Comment on above: Performed By: #### 8 5499 ####[facility] [facility], [place] [address] [place] [address] APTTon 09-18-2019 aPTT Coag (Bld) [Time] 31.1 s Normal 25.0-35.[address] [facility] Comment on above: Result Comment: ALL RESULTS [...] THIS PURPOSE. Performed By: #### 5 7307, 76880 #### [facility] [address] [place] [address], [facility] BASIC METABOLIC PANELon 08-31 Calcium [Mass/Vol] 9.6 mg/dL Normal 8.6-10.3 [facility] Comment on above: Performed By: #### 0 0071 #### [facility] [address] [place] [address], [facility] Chloride [Moles/Vol] 102 mmol/L Normal 98-[address] [facility] Comment on above: Performed By: #### 0 0071 #### [facility] [address] [place] [address], [place] CO2 [Moles/Vol] 27 mmol/L Normal 21-31 [facility] Comment on above: Performed By: #### 0 0071 #### [facility] [address] [place] [address], [place] Creatinine [Mass/Vol] 1.21 mg/dL Normal 0.70-1.[address] [facility] Comment on above: Performed By: #### 0 0071 #### [facility] [address] [place] [address], [place] GFR/1.73 sq M predicted among blacks MDRD (S/P/Bld) [Vol rate/Area] mL/min/{1.73_m2} Normal >[address] [facility] Comment on above: Performed By: #### 0 0071 #### [facility] [address] [place] [address], [place] GFR/1.73 sq M predicted among non-blacks MDRD (S/P/Bld) [Vol rate/Area] mL/min/{1.73_m2} Normal >[address] [facility] Comment on above: Performed By: #### 0 0071 #### [facility] [address] [place] [address], [place] Glucose [Mass/Vol] 86 mg/dL Normal 70-100 [facility] Comment on above: Performed By: #### 0 0071 #### [facility] [address] [place] [address], [place] Potassium [Moles/Vol] 4.0 mmol/L Normal 3.5-5.[address] [facility] Comment on above: Performed By: #### 0 0071 #### [facility] [address] [place] [address], [place] Sodium [Moles/Vol] 135 mmol/L Low 136-145 [facility] Comment on above: Performed By: #### 0 0071 #### [facility] [address] [place] [address], [facility] Urea nitrogen [Mass/Vol] 13 mg/dL Normal 7-[address] [facility] Comment on above: Performed By: #### 0 0071 #### [facility] [address] [facility] C REACTIVE PROTEINon 019 CRP [Mass/Vol] 2.8 mg/L Normal 0.0-7.0 [facility] Comment on above: Performed By: #### 6 1405 ####[facility] CBC W/DIFFon 09-18-2019 ABS BASOPHILS 0.1 10*3/uL Normal 0.0-0.2 [facility] Comment on above: Performed By: #### 5 0103, 66283 #### [facility] [address] ABS IMM GRANS 0.0 10*3/uL Normal 0.0-0.2 [facility] Comment on above: Performed By: #### 5 0103, 37680 #### [facility] [address] ABS NEUTROPHILS 4.6 10*3/uL Normal 1.6-7.6 [facility] Comment on above: Performed By: #### 5 0103, 68915 #### [facility] [address] [place] [address], [facility] Basophils/100 WBC (Bld) 0.6 % Normal 0.0-1.[address] [facility] Comment on above: Performed By: #### 5 0103, 94630 #### [facility] [address] [place], [place] [address]RUST Eosinophils (Bld) [#/Vol] 0.2 10*3/uL Normal 0.0-0.[address] [facility] Comment on above: Performed By: #### 5 102, 33595 #### [facility] [address] [facility] Eosinophils/100 WBC (Bld) 2.2 % Normal 0.0-6.[address] [facility] Comment on above: Performed By: #### 5 102, 50569 #### [facility] [address] Erythrocyte distribution width (RBC) [Ratio] 13.2 % Normal 11.5-15.[address] [facility] Comment on above: Performed By: #### 5 102, 05748 #### [facility] [address] Hematocrit (Bld) [Volume fraction] 46.7 % Normal 39.0-50.[address] [facility] Comment on above: Performed By: #### 102, 24847 #### [facility] [address] [facility] Hemoglobin (Bld) [Mass/Vol] 15.8 g/dL Normal 13.0-17.[address] [facility] Comment on above: Performed By: #### 5 102, 35399 #### [facility] [address] [facility] IMMATURE GRANS 0.2 % Normal 0.0-1.0 [facility] Comment on above: Performed By: #### 5 102, 50723 #### [facility] [address] [facility] Lymphocytes (Bld) [#/Vol] 2.3 10*3/uL Normal 1.2-4.[address] [facility] Comment on above: Performed By: #### 102, 17906 #### [facility] [address] [place] [address], [facility] Lymphocytes/100 WBC (Bld) 28.1 % Normal 20.0-45.[address] [facility] Comment on above: Performed By: #### 5 102, 85276 #### [facility] [address] [facility] [place] [address], [facility] MCH (RBC) [Entitic mass] 30.0 pg Normal 27.0-33.[address] [facility] Comment on above: Performed By: #### 5 102, 95560 #### [facility] [address] [facility] [place] [address], [facility] MCHC (RBC) [Mass/Vol] 33.8 g/dL Normal 32.0-35.[address] [facility] Comment on above: Performed By: #### 5 102, 69599 #### [facility] [address] [facility] [place] [address], [facility] MCV (RBC) [Entitic vol] 88.6 fL Normal 82.0-98.[address] [facility] Comment on above: Performed By: #### 5 102, 02185 #### [facility] [address] [place] [address], [facility] Monocytes (Bld) [#/Vol] 1.0 10*3/uL Normal 0.1-1.[address] [facility] Comment on above: Performed By: #### 5 102, 51252 #### [facility] [address] [place] [address], [facility] MONOS 12.3 % High 5.0-12.[address] [facility] Comment on above: Performed By: #### 5 102, 34461 #### [facility] [address] [facility] [place] [address], [facility] Neutrophils/100 WBC (Bld) 56.6 % Normal 40.0-72.[address] [facility] Comment on above: Performed By: #### 5 0103, 70970 #### [facility] [address] [place] [address], [facility] Nucleated RBC/100 WBC (Bld) [Ratio] 0 % Normal 0-[address] [facility] Comment on above: Performed By: #### 5 102, 93675 #### [facility] [address] [place] [address], [facility] PLAT CNT 237 10*3/uL Normal 150-400 The [facility] Comment on above: Performed By: #### 5 102, 14181 #### [facility] [address] [place] [address], [facility] RBC (Bld) [#/Vol] 5.27 10*6/uL Normal 4.20-5.70 [facility] Comment on above: Performed By: #### 5 102, 80561 #### [facility] [address] [place] [address], [facility] WBC (Bld) [#/Vol] 8.11 10*3/uL Normal 4.00-10.60 [facility] Comment on above: Performed By: #### 5 102, 35019 #### [facility] [address] OSCALSIS RIGHT (CALCANEOUS)o n 09-18-2019 OSCALSIS RIGHT (CALCANEOUS) [facility] Department of Radiology [address] [place] [phone] ======== Patient Name: KAYDEN ARMSTRONG : 1965 Sex: M Age: Race: White Pt. Location: Patient Status: O Ordered Date: 09/18/2019 1:25:00 PM Completed Date: 09/18/2019 01:34 PM Requesting Provider: MILLER MERINO Attending Provider: MILLER MERINO Report Copy To: SELF, REFERRED Signs & Symptoms: S92.061A Displaced intraarticular fracture of right calcaneus, init I10 History: [place] Comments: , , , Ordering Provider - MILLER MERINO PA-C , Exam: OSCALSDEMETRICE RIGHT (CALCANEOUS) ======== OSCALSIS RIGHT (CALCANEOUS) 09/18/2019 [...] post-ORIF. Electronically signed by:Saúl Olea. Transcribed by: [email or web address], User Resident: Electronically Signed by: SAÚL OLEA @ 09/18/2019 02:[address] [facility] Comment on above: Order Comment: , , = ========= , Ordering Provider - MILLER MERINO PA-C , PROTHROMBIN TIMEon 9 INR Coag (PPP) [Relative time] 1.01 {INR} Normal 0.91-1.[address] [facility] Comment on above: Result Comment: ACCC P [...] CHEST 1995;108:[id number]-246S. Performed By: #### 5 7307, [address]1978 #### [address] PT Coag (PPP) [Time] 13.3 s Normal 12.3-14.[address] [facility] Comment on above: Result Comment: ALL RESULTS MUST BE INTERPRETED WITH RESPECT TO BLOOD DRAWING ARTIFACT OR DILUTION ERROR OF ANTICOAGULANT AT THE TIME OF SAMPLING. Performed By: #### 5 7307, 80500 #### [address] SEDIMENTATION RATEon 11-19-2 019 SED RATE 5 mm/hr Normal 0-[address] [facility] Comment on above: Performed By: #### 5 0103, 09215 #### [address] OSCALSIS RIGHT (CALCANEOUS)o n 04-25-2019 OSCALSIS RIGHT (CALCANEOUS) [facility] Department of Radiology [address] [place] [phone] ======== Patient Name: KAYDEN ARMSTRONG : 1965 Sex: M Age: Race: White Pt. Location: Patient Status: O Ordered Date: 04/25/2019 1:25:00 PM Completed Date: 04/25/2019 01:32 PM Requesting Provider: MILLER MERINO Attending Provider: MILLER MERINO Report Copy To: Signs & Symptoms: S92.061A Displaced intraarticular fracture of right calcaneus, init I10 History: [place] Comments: , , , Ordering Provider - MILLER MERINO PA-C , Exam: RAHAT BASSETT (CALCANEOUS) ======== RAHAT RIGHT (CALCANEOUS) 04/25/2019 1:32 [...] tendinopathy Electronically signed by:Jeferson Cooper. Transcribed by: [email or web address], User Resident: Electronically Signed by: JEFERSON COOPER @ 04/25/2019 02:[address] [facility] Comment on above: Order Comment: , , = ========= , Ordering Provider - MILLER MERINO PA-C , OSCALSIS RIGHT (CALCANEOUS)o n 01-24-2019 OSCALSIS RIGHT (CALCANEOUS) [facility] Department of Radiology [address] [place] [phone] ======== Patient Name: KAYDEN ARMSTRONG : 1965 Sex: M Age: Race: White Pt. Location: Patient Status: Ordered Date: 01/24/2019 1:35:00 PM Completed Date: 01/24/2019 01:39 PM Requesting Provider: MILLER MERINO Attending Provider: Report Copy To: Signs & Symptoms: S92.061A Displaced intraarticular fracture of right calcaneus, init I10 History: [place] Comments: , , , Ordering Provider - MILLER MERINO PA-C , Exam: OSCMINIS RIGHT (CALCANEOUS) ======== OSCALSIS RIGHT (CALCANEOUS) 01/24/2019 [...] thickening Electronically signed by:Jeferson Cooper. Transcribed by: [email or web address], User Resident: Electronically Signed by: JEFERSON COOPER @ 01/24/2019 01:[address] [facility] Comment on above: Order Comment: , , = ========= , Ordering Provider - MILLER MERINO PA-C , OSCALSIS RIGHT (CALCANEOUS)o n 12-13-2018 OSCALSIS RIGHT (CALCANEOUS) [facility] Department of Radiology [address] [place] [phone] ======== Patient Name: KAYDEN ARMSTRONG : 1965 Sex: M Age: Race: White Pt. Location: Patient Status: Ordered Date: 12/13/2018 2:30:00 PM Completed Date: 12/13/2018 02:31 PM Requesting Provider: MILLER MERINO Attending Provider: Report Copy To: Signs & Symptoms: S92.061A Displaced intraarticular fracture of right calcaneus, init I10 History: [place] Comments: , , , Ordering Provider - [...] thickening Electronically signed by:Jeferson Cooper. Transcribed by: [email or web address], User Resident: Electronically Signed by: JEFERSON COOPER @ 12/13/2018 03:[address] [facility] Comment on above: Order Comment: , , = ========= , Ordering Provider - MILLER MERINO PA-C , OSCALSIS RIGHT (CALCANEOUS)o n 11-01-2018 OSCALSIS RIGHT (CALCANEOUS) [facility] Department of Radiology [address] [place] [phone] ======== Patient Name: KAYDEN ARMSTRONG : 1965 Sex: M Age: Race: White Pt. Location: 84 Patient Status: Ordered Date: 11/01/2018 1:30:00 PM Completed Date: 11/01/2018 01:34 PM Requesting Provider: MILLER MERINO Attending Provider: Report Copy To: Signs & Symptoms: S92.061A Displaced intraarticular fracture of right calcaneus, init I10 History: [place] Comments: , , , Ordering Provider - MILLER MERINO PA-C , Exam: OSCALSIS RIGHT (CALCANEOUS) ======== OSCALSIS RIGHT (CALCANEOUS) 11/01/2018 1:34 PM EST SIGNS [...] alignment Electronically signed by:Jeferson Cooper. Transcribed by: [email or web address], User Resident: Electronically Signed by: JEFERSON COOPER @ 11/01/2018 02:[address] [facility] Comment on above: Order Comment: , , = ========= , Ordering Provider - MILLER MERINO PA-C , Vital Signs Date Time Vital Sign Value Performing Clinician Facility 11-26-2024 13:43-0500 Body mass index (BMI) [Ratio] 27.53 kg/m2 Jennifer Zelaya MD Work Phone: [facility] [employer] 11-26-2024 13:43-0500 Body weight 92.08 kg Jennifer Zelaya MD Work Phone: [facility] 10-26-2023 15:15-0500 Body height 182.88 cm Qasim Ball Other [facility] Other 10-26-2023 15:15-0500 Body mass index (BMI) [Ratio] 31.46 kg/m2 Qasim Ball Other [facility] Other 10-26-2023 15:15-0500 Body weight 105.24 kg Qasim Ball Other [facility] Other 10-26-2023 15:15-0500 Diastolic blood pressure 87 mm[Hg] Qasim Ball Other [facility] Other 10-26-2023 15:15-0500 Respiratory rate 12 /min Qasim Ball Other [facility] Other 10-26-2023 15:15-0500 Systolic blood pressure 126 mm[Hg] Qasim Ball Other [facility] Other 01-04-2023 09:30-0500 Body height 182.88 cm Qasim Ball Other [facility] Other 01-04-2023 09:30-0500 Body mass index (BMI) [Ratio] 31.22 kg/m2 Qasim Ball Other [facility] Other 01-04-2023 09:30-0500 Body weight 104.42 kg Qasim Ball Other [facility] Other 01-04-2023 09:30-0500 Diastolic blood pressure 78 mm[Hg] Qasim Ball Other [facility] Other 01-04-2023 09:30-0500 Respiratory rate 12 /min Qasim Fairchild Other [facility] Other 01-04-2023 09:30-0500 Systolic blood pressure 122 mm[Hg] Qasim Fairchild Other [facility] Other Encounters Encounter Date Encounter Type Care Provider Facility Start: 11-26-2024 End: 11-26-2024 Bamboo flowsheet Jennifer Zelaya MD Work Phone: [facility] Start: 11-26-2024 End: 11-26-2024 Bammikel [employer] Communicationsemmett Zelaya MD Work Phone: [facility] Start: 11-26-2024 End: 11-26-2024 Office outpatient visit 25 minutes Jennifer Zelaya MD Work Phone: [facility] [facility] Comment on above: Psoriasis vulgaris ( [facility]) (Primary Dx); High risk medication use; Other seborrheic dermatitis Start: 11-26-2024 End: 11-26-2024 ambulatory JENNIFER ZELAYA Not Available Start: 11-08-2023 End: 11-08-2023 ambulatory Qasim Fairchild Other [facility] Other Start: 11-08-2023 Telephone encounter Qasim OLIVO [facility] Start: 10-26-2023 End: 10-26-2023 ambulatory Qasim Fairchild Other [facility] Other Start: 10-26-2023 Office outpatient vi sit 15 minutes Qasim Fairchild [facility] Start: 02-04-[address] QASIM FAIRCHILD Facili ty:[facility]1 Start: 01-04-2023 End: 01-04-2023 ambulatory Qasim Fairchild Other [facility] Other Start: 01-04-2023 Encounter for genera l adult medical examination without abnormal findings Qasim Fairchild [facility] Start: 01-04-2023 Periodic preventive med est patient 40-64yrs Qasim Fairchild [facility] Start: 02-12-2022 End: 02-13-[address] QASIM FAIRCHILD Facility: Start: 10-01-2019 End: 10-02-2019 Patient encounter procedure STONE FRIZT Facility:[facility] [[email or web address] Procedures Date Procedure Procedure Detail Performing Clinician Start: 10-01-2019 ANESTH LOWER LEG BONE SURG BOB MAGAN Start: 10-01-2019 REMOVAL OF SUPPORT IMPLANT STONE FRITZ Start: 04-25-2018 General examination of patient Qasim Fairchild Other Plan of Treatment Date Care Activity Detail Author Start: 02-25-2025 End: 02-25-2025 Patient encounter procedure 02/25/2025 3:30 PM EDT Office Visit [facility] [address] [place] [address] Jennifer Zelaya MD [address] [place], [place] [id number] [facility] Start: 11-26-2024 End: 11-26-2025 TB test, cell immune measure TB test, cell immune measure Lab Routine Psoriasis vulgaris (CMS/HCC) High risk medication use Expected: 11/26/2024 (Approximate), Expires: 11/26/2025 [facility] Work Phone: Comment on above: Expected: 11/26/2024 (Approximate), Expires: 11/26/2025 Start: 11-26-2024 End: 11-26-2024 Patient encounter procedure 11/26/2024 1:30 PM EST Office Visit [facility] [address] [place] [address] Jennifer Zelaya MD [address] [place] [address] Arrived [facility] Comment on above: Arrived Start: 07-01-2024 Influenza vaccination Influenza Vacc ine (#1) [facility] Start: 1965 Screening for malign ant neoplasm of colon [facility] Immunizations Immunization Date Immunization Notes Care Provider Fa [facility] 08-19-2023 Influenza, injectabl e, [place] Canine Kidney, preservative free, quadrivalent Jennifer Zelaya MD Work Phone: [facility] 08-19-2023 zoster vaccine recombinant Jennifer Zelaya MD Work Phone: [facility] 08-19-2023 influenza virus vaccine, unspecified formulation Jennifer Zelaya MD Work Phone: [facility] 04-05-2016 tetanus toxoid, reduced diphtheria toxoid, and acellular pertussis vaccine, adsorbed Qasim Ball Other [facility] Other Payers Date Payer Category Payer [facility] [id number] 2024 Unknown [id number] 2006 Private Health Insurance [id number] 1965 Unknown [id number] 1966 Unknown [id number] 1966 Unknown [id number] 1966 Unknown [id number] 1959 [facility] [id number] 1958 Self-pay Social History Date Type Detail Facility Start: 11-17-2023 End: 11-27-2024 Sex Assigned At [place] Other Start: 11-17-2023 Tobacco smoking status NHIS Smokes tobacco daily [facility] History of tobacco use Cigarette Smoker [facility] Start: 11-17-2023 Tobacco use and exposure Smokeless tobacco non-user [facility] Start: 11-17-2023 End: 11-27-2024 History of Social function [facility] Start: 1965 Sex assigned at Not on file N [facility] History of Present illness Narrative 11-26-2024 Jennifer Zelaya MD - 11/26/2024 1:30 PM EST Note Date & Type Note Facility 11-26-2024 History of Presen t illness Narrative Images from the original note were not included. Subjective Kayden Armstrong is a 58 y.o. male who presents for the following: Psoriasis biologic follow up Location: hands, feet, fingernails, new patches on neck now too Duration: years Associated Factors: itchy on palms when flares, admits flares during the winter Initial BSA: 2% Joint pain present: Yes- admits to hand pain which is affecting daily tasks History of depression: No Treatments tried: otezla, soriatane, stelara Current treatment: taltz 80mg/ml every 4 weeks, betamethasone ointment prn Last TB test: 10/2023 Patient has noticed improvement in scaling since starting current treatment. Insurance has notified office that they will no longer cover Taltz, will cover Bimzelx instead. Established patient All pertinent medical history, medications, and allergies were reviewed. General Exam: alert, oriented to person, place, and time, normal affect, well appearing Unaccompanied A focused exam completed based on patient reported problems, see below: 1. Psoriasis vulgaris (CMS/HCC) Left Foot - Anterior, Left Hand - Anterior, Right Foot - Anterior, Right Hand - Anterior Well-marginated erythematous papules/plaques with silvery scale. Flaring today on hands. BSA 2% SPGA 2. The patient was informed that psoriasis is a chronic condition that can be controlled but not cured. Continue betamethasone cream bid prn flares. Plan to start Bimzelx. Will initiate investigation of coverage of Bimzelx. Sample given today of Taltz to bridge patient until coverage status of Bimzelx is known. Patient understands to hold starting dose of Bimzelx until he would normally be due for next Taltz injection. Patient denies history of CHF, IBD, or MS. Reviewed side effects with patient including increased risk of infections and injection site reactions. Recommended holding medication dose if patient has an active infection and can resume once cleared. Instructed to contact office if psoriasis worsens or fails to improve despite treatment. Will contact patient as soon as coverage status of Bimzelx is known. Discussed risk of depression with this medication, patient denies history of depression. Stop medication and notify clinic if depressed mood occurs on this medication. Plan to recheck in 3 months. Lab slip given for TB test now. Related Procedures TB test, cell immune measure Related Medications betamethasone dipropionate 0.05 % cream Apply to affected areas on hands and feet up to twice a day when flared, do not use one the face, groin, or underarms, 30 day supply 2. High risk medication use Related Procedures TB test, cell immune measure 3. Other seborrheic dermatitis Left Occipital Scalp, Right Occipital Scalp Erythema and scale. Flaring today Discussed that seborrheic dermatitis is a chronic condition that can be controlled but not cured. Start ciclopirox cream every day. Notify office if flaring despite treatment. Related Medications ciclopirox (Loprox) 0.77 % cream Apply thin layer to affected area on neck/chest once a day, 30 day supply Next Visit: 3 months. documented in this encounter [facility] Evaluation note 10-26-2023 Note Date & Type Note Facility 10-26-2023 Evaluation note Encounter Date Diagnosis Assessment Notes Sep, Acute bronchitis due to other specified organisms (ICD-10 - J20.8) Instructed to use Robitussin or Mucinex for cough, saline or Flonase NS for congestion, Tylenol for pain and fever. Sep, Subcutaneous mass (ICD-10 - R22.9) This is not involving the breast. [place] sized [place] mass, smooth, mobile and nontender. N [facility] Other Evaluation note 01-04-2023 Note Date & [...] (ICD-10 - F17.210) Start age 20, 1ppd [facility] Other History general Narrative - Reported 04-25-2018 Note Date & Type Note Facility 04-25-2018 History general N arrative - Reported Type Medical History psoriasis Medical History benign prostatic hyp ertrophy without outflow obstruction 04/25/2018 Medical History tobacco use Medical History salpingitis of left eustachian t ube Surgical History shoulder surgery right 2007 Hospitalization History see surgical history [facility] Other Evaluation note Note Date & Type Note Facility Evaluation note No Information Wantful Other Evaluation note Note Date & Type Note Facility Evaluation note Diagnosis Psoriasis vulgaris ([facility])- Primary Other psoriasis High risk medication use Other seborrheic dermatitis documented in this encounter [facility] Summary Purpose Family History No Family History Records FoundNo Family History Records FoundNo Family History Records Found Advance Directives No Advanced Directives Records FoundNo Advanced Directives Records FoundNo Advanced Directives Records Found Additional Source Comments (unrecognized sect ion and content) No Status Records FoundNo Status Records FoundNo Status Records Found INFORMATION SOURCE (unrecogn ized section and content) DATE CREATED AUTHOR 10/26/[address] 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 [facility] [employer] [facility]. provides no warranty or guarantee of the accuracy or completeness of information in this document.
--- NOTE | 2024-11-29 07:42 | CT_ITS ---
The [address] [address] Patient Name: KAYDEN ARMSTRONG MRN: [id number] date: 1965 Sex: M Assigned Patient Location: [facility] Current Patient Location: [place] Accession/Order Number: [id number] Exam Date: 11/29/2024 09:24 Report Date: 11/29/2024 14:38 At the request of: SHAUN SALTER Procedure: CT chest wo con EXAMINATION: CT chest wo con HISTORY: Lung Nodule COMPARISON: No relevant comparison available. TECHNIQUE: Axial, Coronal, and Sagittal images were created without the administration of IV contrast material. Dose reduction techniques were achieved by using automated exposure control and/or adjustment of mA and/or kV according to patient size and/or use of iterative reconstruction technique. FINDINGS: LUNGS: Calcified granuloma within anterior right upper lobe and a few tiny calcified granulomas scattered within the lungs. No acute infiltrates or significant chronic interstitial changes. PLEURA: No mass, effusion, or pneumothorax. VASCULATURE: No abnormality. SJ: No mass or pathologic adenopathy. MEDIASTINUM: No mass or pathologic adenopathy. CARDIAC: No enlargement, pericardial thickening, or pericardial effusion. Coronary Artery calcifications: Coronary calcifications are mild. AORTA: No aneurysm or dissection. CHEST WALL: No mass or axillary adenopathy BONES: No bone lesion or fracture. LIMITED ABDOMEN: No suspicious findings. Limited images of the upper abdomen. OTHER: Negative. CT/CT chest wo con IMPRESSION: 1. A few scattered calcifications compatible with benign granulomas. No suspicious lung nodules or infiltrates. Electronically authenticated by: ISAC GOFF Date: 11/29/2024 14:38
== END 2024-11-29 06:58 | disposition home or self-care (01) ==
LOC: NM 06:57
PROVIDERS: PCP Internal Medicine; Visit Provider Internal Medicine
DX: K80.10 Calculus of gallbladder with chronic cholecystitis without obstruction (principal); R10.9 Unspecified abdominal pain; R91.1 Solitary pulmonary nodule
CPT/HCPCS: 71250; 78227; A9537

== ENCOUNTER 2024-11-30 07:11 | Outpatient (OUT) | payer BC, SELFPAY ==
--- OUTSIDE RECORDS SUMMARY | 2024-11-30 07:15 | XMS_ITS | CCD ---
Author Organization [facility] Inform ion Partnership [facility] Care Team Providers Care Flash Welder Name Role Phone STONE FRITZ Admitting Unavailable STONE FRITZ Attending Unavailable QASIM FAIRCHILD Referring Unavailable QASIM FAIRCHILD Primary Care Unavailable CT Procedure Practitioner Unavailab STONE Wick Surgeon Unavailable CT Procedure Practitioner Unavailab BOB Gonzalez Surgeon Unavailable [...] Facility (3 sources) Amoxicillin Drug Allergy Unknown [employer] Other Medications Current Medications Medication Drug Class(es) [...] into the eye(s) four times daily Maxitrol 3.5-38211-4.1 1 drop into affected eye Ophthalmic Four times a day Mar, Active Start: 04-05-2016 take 1 drop(s) into the eye(s) four times daily Maxitrol 3.5-95305-5.1 1 drop into affected eye Ophthalmic Four [...] sources) Taking high risk medication; Translations: [Other correction (current) drug therapy] 11-26-2024 Episodic Other circulatory [...] te Episodic/Chronic Other aftercare (1 source) Other correction (current) drug therapy; Translations: [OTH 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 The mitogen tube serves as a control for the test. Performed By: #### Q NTTB #### [facility] [address] [place] [address] Dr. Graham Babcock QuantiFERON Incubation Incubation performed. Normal [facility] Comment on above: Performed By: #### Q NTTB #### [facility] [address] [place] [address] Dr. Graham Babcock QuantiFERON Mitogen Value >10.00 Normal [facility] Comment on above: Performed By: #### Q NTTB #### [facility] [address] [place] [address] Dr. Graham Babcock QuantiFERON Nil Value 0.11 IU/mL Normal [facility] Comment on above: Performed By: #### Q NTTB #### [facility] [address] [place] [address] Dr. Graham Babcock QuantiFERON TB1 Ag Value 0.12 IU/mL Normal [facility] Comment on above: Performed By: #### Q NTTB #### [facility] [address] [place] [address] Dr. Graham Babcock QuantiFERON TB2 Ag Value 0.11 IU/mL Normal [facility] Comment on above: Performed By: #### Q NTTB #### [facility] [address] [place] [address] Dr. Graham Babcock QuantiFERON-TB Gold Plus Negative Normal Negative [facility] Comment on above: Result Comment: Chem iluminescence immunoassay methodology Performed By: #### Q NTTB #### [facility] [address] [address] [address] Graham Babcock RAHAT BASSETT (CALCANEOUS)o n 10-15-2019 RAHAT RIGHT (CALCANEOUS) [facility] Department of Radiology [address] [place] [address] ======== Patient Name: KAYDEN ARMSTRONG : 1965 Sex: M Age: Race: White Pt. Location: Patient Status: O Ordered Date: 10/15/2019 8:15:00 AM Completed Date: 10/15/2019 08:14 AM Requesting Provider: MILLER MERINO Attending Provider: MILLER MERINO Report Copy To: QASIM FAIRCHILD Signs & Symptoms: S92.061A Displaced intraarticular fracture of right calcaneus, init I10 History: [place] Comments: , , , Ordering Provider - [...] deformity Electronically signed by:Jeferson Cooper. Transcribed by: [email or web address], User Resident: Electronically Signed by: JEFERSON COOPER @ 10/15/2019 12:07 PM Normal [facility] Comment on above: Order Comment: , , = ========= , Ordering Provider - MILLER MERINO PA-C , *ANAEROBIC CULTUREon 019 *ANAEROBIC CULTURE Clinical Report: (D) Specimen/Source: SWAB/INTRAOP SPEC Collected: 10/01/2019 13:12 Status: Final Last Updated: 10/06/2019 10:40 (1) #1 R. CALCANEUS SCREW SITE ISO (Final) No Anaerobes Isolated 5 Days Normal [facility] Comment on above: Order Comment: , , = ========= , Ordering Provider - MILLER MERINO PA-C , Performed By: #### 3 0312 ####[address] *WOUND CULTUREon 10-01-2019 *WOUND CULTURE Clinical [...] CEFAZOLIN (CZ) >32 Resistant <=1 Susceptible CEFTRIAXONE (PRODUCT PROMOTER SALES PERSON) <=0.5 Susceptible <=0.5 Susceptible CIPROFLOXACIN (CIP) <=0.5 Susceptible <=0.5 Susceptible GENTAMICIN (GM) 1 Susceptible 1 Susceptible PIP/TAZO (TZP) <=2/4 Susceptible PIP/TAZO (TZP) 4/4 Susceptible TOBRAMYCIN (TOB) <=0.5 Susceptible <=0.5 Susceptible TRIMETH/SULFA (SXT) <=0.5/9.5 Susceptible <=0.5/9.5 Susceptible Antibiotic Summary Grid: AMS AM AZM CZ PRODUCT PROMOTER SALES PERSON CIP GM TZP TOB SXT Enterobacter R R S R S S S S S S cloacae complex Klebsiella S R S S S S S S S S variicola Normal [facility] Comment on above: Order Comment: , , = ========= , Ordering Provider - MILLER MERINO PA-C , Performed By: #### 3 0343 ####[address] OSCALSIS RIGHT(CALCANEOUS)on 10-01-2019 OSCALSIS RIGHT(CALCANEOUS) [facility] Department of Radiology [address] [place] [id number] ======== Patient Name: KAYDEN ARMSTRONG : [...] documentation. Electronically signed by:Harini Cortes. Transcribed by: [email or web address], User Resident: Electronically Signed by: HARINI CORTES @ 10/01/2019 03:48 PM Normal [facility] Comment on above: Order Comment: , , = ========= , Ordering Provider - MILLER MERINO PA-C , Operative Reporton 9 Operative Report MR#: [id number] S [facility] Pt. Name: Kayden Armstrong Room #: [...] Paul MD Date Trans: 10/01/2019 03:18 P/manano [id number] cc: Qasim Fairchild D.O. [address] [place] [phone] Normal [facility] POC GLUCOSE LABon 10-01-2019 Glucose [Mass/Vol] 99 mg/dL Normal 70-100 [facility] Comment on above: Performed By: #### 8 5499 ####[facility] [facility], [place] [id number] [place] [address] APTTon 09-18-2019 aPTT Coag (Bld) [Time] 31.1 s Normal 25.0-35.0 [facility] Comment on above: Result Comment: ALL [...] THIS PURPOSE. Performed By: #### 5 7307, 68909 #### [facility] [address] [place] [address], [facility] BASIC METABOLIC PANELon 08-31 Calcium [Mass/Vol] 9.6 mg/dL Normal 8.6-10.3 [facility] Comment on above: Performed By: #### 0 0071 #### [facility] [address] [place] [address], [facility] Chloride [Moles/Vol] 102 mmol/L Normal 98-107 [facility] Comment on above: Performed By: #### 0 0071 #### [facility] [address] [place] [address], [place] CO2 [Moles/Vol] 27 mmol/L Normal 21-31 The [facility] Comment on above: Performed By: #### 0 0071 #### [facility] [address] [place] [address], [place] Creatinine [Mass/Vol] 1.21 mg/dL Normal 0.70-1.30 [facility] Comment on above: Performed By: #### 0 0071 #### [facility] [address] [place] [address], [place] GFR/1.73 sq M predicted among blacks MDRD (S/P/Bld) [Vol rate/Area] mL/min/{1.73_m2} Normal >60 [facility] Comment on above: Performed By: #### 0 0071 #### [facility] [address] [place] [address], [place] GFR/1.73 sq M predicted among non-blacks MDRD (S/P/Bld) [Vol rate/Area] mL/min/{1.73_m2} Normal >60 [facility] Comment on above: Performed By: #### 0 0071 #### [facility] [address] [place] [address], [place] Glucose [Mass/Vol] 86 mg/dL Normal 70-100 [facility] Comment on above: Performed By: #### 0 0071 #### [facility] [address] [place] [address], [place] Potassium [Moles/Vol] 4.0 mmol/L Normal 3.5-5.1 [facility] Comment on above: Performed By: #### 0 0071 #### [facility] [address] [place] [address], [place] Sodium [Moles/Vol] 135 mmol/L Low 136-145 The [facility] Comment on above: Performed By: #### 0 0071 #### [facility] [address] [facility] [place] [place] [address], [facility] Urea nitrogen [Mass/Vol] 13 mg/dL Normal 7-25 [facility] Comment on above: Performed By: #### 0 0071 #### [facility] [address] [facility]. [address] C REACTIVE PROTEINon 019 CRP [Mass/Vol] 2.8 mg/L Normal 0.0-7.0 The [facility] Comment on above: Performed By: #### 6 1405 ####[facility] CBC W/DIFFon 09-18-2019 ABS BASOPHILS 0.1 10*3/uL Normal 0.0-0.2 [facility] Comment on above: Performed By: #### 5 0103, 77238 #### [facility] [address] ABS IMM GRANS 0.0 10*3/uL Normal 0.0-0.2 [facility] Comment on above: Performed By: #### 5 0103, 48942 #### [facility] [address] ABS NEUTROPHILS 4.6 10*3/uL Normal 1.6-7.6 The [facility] Comment on above: Performed By: #### 5 0103, 19533 #### [facility] [address] [place] [address], [facility] Basophils/100 WBC (Bld) 0.6 % Normal 0.0-1.0 [facility] Comment on above: Performed By: #### 5 0103, 84979 #### [facility] [address] [place], [place] [address] Eosinophils (Bld) [#/Vol] 0.2 10*3/uL Normal 0.0-0.5 [facility] Comment on above: Performed By: #### 5 102, 27187 #### [facility] [address] [facility]. [address] Eosinophils/100 WBC (Bld) 2.2 % Normal 0.0-6.0 [facility] Comment on above: Performed By: #### 5 102, 15066 #### [facility] [address] Erythrocyte distribution width (RBC) [Ratio] 13.2 % Normal 11.5-15.0 [facility] Comment on above: Performed By: #### 5 102, 89279 #### [facility] [address] Hematocrit (Bld) [Volume fraction] 46.7 % Normal 39.0-50.0 [facility] Comment on above: Performed By: #### 102, 07887 #### [facility] [address] [facility]. [address] Hemoglobin (Bld) [Mass/Vol] 15.8 g/dL Normal 13.0-17.0 [facility] Comment on above: Performed By: #### 5 102, 41979 #### [facility] [address] [facility]. [address] IMMATURE GRANS 0.2 % Normal 0.0-1.0 The [facility] Comment on above: Performed By: #### 5 102, 23849 #### [facility] [address] [facility]. [address] Lymphocytes (Bld) [#/Vol] 2.3 10*3/uL Normal 1.2-4.0 [facility] Comment on above: Performed By: #### 102, 26068 #### [facility] [address] [place] [address], [facility] Lymphocytes/100 WBC (Bld) 28.1 % Normal 20.0-45.0 [facility] Comment on above: Performed By: #### 5 102, 84311 #### [facility] [address] [facility] [place] [address], [facility] MCH (RBC) [Entitic mass] 30.0 pg Normal 27.0-33.0 [facility] Comment on above: Performed By: #### 5 102, 00925 #### [facility] [address] [facility] [address], [facility] MCHC (RBC) [Mass/Vol] 33.8 g/dL Normal 32.0-35.0 [facility] Comment on above: Performed By: #### 5 102, 49240 #### [facility] [address] [facility] [place] [address], [facility] MCV (RBC) [Entitic vol] 88.6 fL Normal 82.0-98.0 [facility] Comment on above: Performed By: #### 5 102, 28311 #### [facility] [address] [facility] [place] [place] [address], [facility] Monocytes (Bld) [#/Vol] 1.0 10*3/uL Normal 0.1-1.0 [facility] Comment on above: Performed By: #### 5 102, 64450 #### [facility] [address] [facility] [place] [place] [address], [facility] MONOS 12.3 % High 5.0-12.0 [facility] Comment on above: Performed By: #### 5 102, 72368 #### [facility] [address] [facility] [address], [facility] Neutrophils/100 WBC (Bld) 56.6 % Normal 40.0-72.0 [facility] Comment on above: Performed By: #### 5 0103, 66715 #### [facility] [address] [facility] [place] [place] [address], [facility] Nucleated RBC/100 WBC (Bld) [Ratio] 0 % Normal 0-0 [facility] Comment on above: Performed By: #### 5 102, 77056 #### [facility] [address] [facility] [place] [place] [address], [facility] PLAT CNT 237 10*3/uL Normal 150-400 The [facility] Comment on above: Performed By: #### 5 102, 94679 #### [facility] [address] [place] [address], [facility] RBC (Bld) [#/Vol] 5.27 10*6/uL Normal 4.20-5.70 The [facility] Comment on above: Performed By: #### 5 102, 78063 #### [facility] [address] [facility] [place] [place] [address], [facility] WBC (Bld) [#/Vol] 8.11 10*3/uL Normal 4.00-10.60 The [facility] Comment on above: Performed By: #### 5 102, 53320 #### [facility] [address] OSCALSIS RIGHT (CALCANEOUS)o n 09-18-2019 OSCALSIS RIGHT (CALCANEOUS) [facility] Department of Radiology [address] [place] [phone] ======== Patient Name: KAYDEN ARMSTRONG : 1965 Sex: M Age: Race: White Pt. Location: Patient Status: O Ordered Date: 09/18/2019 1:25:00 PM Completed Date: 09/18/2019 01:34 PM Requesting Provider: MILLER MERINO Attending Provider: MILLER MERINO Report Copy To: SELF, REFERRED Signs & Symptoms: S92.061A Displaced intraarticular fracture of right calcaneus, init I10 History: [place] Comments: , , , Ordering Provider - [...] post-ORIF. Electronically signed by:Saúl Olea. Transcribed by: [email or web address], User Resident: Electronically Signed by: SAÚL OLEA @ 09/18/2019 02:50 PM Normal [facility] Comment on above: Order Comment: , , = ========= , Ordering Provider - MILLER MERINO PA-C , PROTHROMBIN TIMEon 9 INR Coag (PPP) [Relative time] 1.01 {INR} Normal 0.91-1.16 [facility] Comment on above: Result Comment: ACCC [...] CHEST 1995;108:231S-246S. Performed By: #### 5 7307, [address]50 #### [address] PT Coag (PPP) [Time] 13.3 s Normal 12.3-14.8 [facility] Comment on above: Result Comment: ALL RESULTS MUST BE INTERPRETED WITH RESPECT TO BLOOD DRAWING ARTIFACT OR DILUTION ERROR OF ANTICOAGULANT AT THE TIME OF SAMPLING. Performed By: #### 5 7307, 00538 #### [address] SEDIMENTATION RATEon 11-19-2 019 SED RATE 5 mm/hr Normal 0-10 [facility] Comment on above: Performed By: #### 5 0103, 98634 #### [address] OSCALSIS RIGHT (CALCANEOUS)o n 04-25-2019 OSCALSIS RIGHT (CALCANEOUS) [facility] Department of Radiology [address] [place] [id number] ======== Patient Name: KAYDEN ARMSTRONG : [...] tendinopathy Electronically signed by:Jeferson Cooper. Transcribed by: [email or web address], User Resident: Electronically Signed by: JEFERSON COOPER @ 04/25/2019 02:10 PM [facility] Comment on above: Order Comment: , , = ========= , Ordering Provider - MILLER MERINO PA-C , OSCALSIS RIGHT (CALCANEOUS)o n 01-24-2019 OSCALSIS RIGHT (CALCANEOUS) [facility] Department of Radiology [address] [place] [id number] ======== Patient Name: KAYDEN ARMSTRONG : 1965 Sex: M Age: Race: White Pt. Location: Patient Status: Ordered Date: 01/24/2019 1:35:00 PM Completed Date: 01/24/2019 01:39 PM Requesting Provider: MILLER MERINO Attending Provider: Report Copy To: Signs & Symptoms: S92.061A Displaced intraarticular fracture of right calcaneus, init I10 History: [place] Comments: , , , Ordering Provider - [...] thickening Electronically signed by:Jeferson Cooper. Transcribed by: [email or web address], User Resident: Electronically Signed by: JEFERSON COOPER @ 01/24/2019 01:49 PM Normal [facility] Comment on above: Order Comment: , , = ========= , Ordering Provider - MILLER MERINO PA-C , OSCALSIS RIGHT (CALCANEOUS)o n 12-13-2018 OSCALSIS RIGHT (CALCANEOUS) [facility] Department of Radiology [address] [place] [phone] ======== Patient Name: KAYDEN ARMSTRONG : 1965 Sex: M Age: Race: White Pt. Location: Patient Status: Ordered Date: 12/13/2018 2:30:00 PM Completed Date: 12/13/2018 02:31 PM Requesting Provider: MILLER MERINO Attending Provider: Report Copy To: Signs & Symptoms: S92.061A Displaced intraarticular fracture of right calcaneus, init I10 History: [place] Comments: , , , Ordering Provider - [...] thickening Electronically signed by:Jeferson Cooper. Transcribed by: [email or web address], User Resident: Electronically Signed by: JEFERSON COOPER @ 12/13/2018 03:46 PM Normal [facility] Comment on above: Order Comment: , , = ========= , Ordering Provider - MILLER MERINO PA-C , OSCALSIS RIGHT (CALCANEOUS)o n 11-01-2018 OSCALSIS RIGHT (CALCANEOUS) [facility] Department of Radiology [address] [place] [phone] ======== Patient Name: KAYDEN ARMSTRONG : 1965 Sex: M Age: Race: White Pt. Location: 84 Patient Status: Ordered Date: 11/01/2018 1:30:00 PM Completed Date: 11/01/2018 01:34 PM Requesting Provider: MILLER MERINO Attending Provider: Report Copy To: Signs & Symptoms: S92.061A Displaced intraarticular fracture of right calcaneus, init I10 History: [place] Comments: , , , Ordering Provider - [...] alignment Electronically signed by:Jeferson Cooper. Transcribed by: [email or web address], User Resident: Electronically Signed by: JEFERSON COOPER @ 11/01/2018 02:02 PM Normal [facility] Comment on above: Order Comment: , , = ========= , Ordering Provider - MILLER MERINO PA-C , Vital Signs Date Time Vital Sign Value Performing Clinician Facility 11-26-2024 13:43-0500 Body mass index (BMI) [Ratio] 27.53 kg/m2 Jennifer Zelaya MD Work Phone: [facility] 11-26-2024 13:43-0500 Body weight 92.08 kg Jennifer Zelaya MD Work Phone: [facility] 10-26-2023 15:15-0500 Body height 182.88 cm Qasim Ball Other [employer] Other 10-26-2023 15:15-0500 Body mass index (BMI) [Ratio] 31.46 kg/m2 Qasim Ball Other [employer] Other 10-26-2023 15:15-0500 Body weight 105.24 kg Qasim Ball Other [employer] Other 10-26-2023 15:15-0500 Diastolic blood pressure 87 mm[Hg] Qasim Ball Other [employer] Other 10-26-2023 15:15-0500 Respiratory rate 12 /min Qasim Ball Other [employer] Other 10-26-2023 15:15-0500 Systolic blood pressure 126 mm[Hg] Qasim Ball Other [employer] Other 01-04-2023 09:30-0500 Body height 182.88 cm Qasim Ball Other [employer] Other 01-04-2023 09:30-0500 Body mass index (BMI) [Ratio] 31.22 kg/m2 Qasim Ball Other [employer] Other 01-04-2023 09:30-0500 Body weight 104.42 kg Qasim Ball Other [employer] Other 01-04-2023 09:30-0500 Diastolic blood pressure 78 mm[Hg] Qasim Ball Other [employer] Other 01-04-2023 09:30-0500 Respiratory rate 12 /min Qasim Fairchild Other [employer] Other 01-04-2023 09:30-0500 Systolic blood pressure 122 mm[Hg] Qasim Fairchild Other [employer] Other Encounters Encounter Date Encounter Type Care Provider Facility Start: 11-26-2024 End: 11-26-2024 Bamboo flowsheet Jennifer Zelaya MD Work Phone: [facility] Start: 11-26-2024 End: 11-26-2024 [employer]emmett Zelaya MD Work Phone: [facility] Start: 11-26-2024 End: 11-26-2024 Office outpatient visit 25 minutes Jennifer Zelaya MD Work Phone: [facility] Comment on above: Psoriasis vulgaris ( [facility]) (Primary Dx); High risk medication use; Other seborrheic dermatitis Start: 11-26-2024 End: 11-26-2024 ambulatory JENNIFER ZELAYA Not Available Start: 11-08-2023 End: 11-08-2023 ambulatory Qasim Fairchild Other [employer] Other Start: 11-08-2023 Telephone encounter Qasim OLIVO G [facility] Start: 10-26-2023 End: 10-26-2023 ambulatory Qasim Fairchild Other [employer] Other Start: 10-26-2023 Office outpatient vi sit 15 minutes Qasim Fairchild [facility] Start: 02-04-[address] QASIM FAIRCHILD Facili ty:[facility] Start: 01-04-2023 End: 01-04-2023 ambulatory Qasim Fairchild Other [employer] Other Start: 01-04-2023 Encounter for genera l adult medical examination without abnormal findings Qasim Fairchild [facility] Start: 01-04-2023 Periodic preventive med est patient 40-64yrs Qasim Fairchild [facility] Start: 02-12-2022 End: 02-13-[address] QASIM FAIRCHILD Facility: Start: 10-01-2019 End: 10-02-2019 Patient encounter procedure STONE FRITZ Facility:[facility] Procedures Date Procedure Procedure Detail Performing Clinician [...] [address] [place], [place] [id number] [facility] Start: 11-26-2024 End: 11-26-2025 [...] [address] [place] [address] Arrived [facility] Comment on above: Arrived Start: 07-01-2024 Influenza vaccination Influenza Vacc ine (#1) [facility] Start: 1965 Screening for malign ant neoplasm of colon [facility] Immunizations Immunization Date Immunization Notes Care Provider [facility] 08-19-2023 Influenza, injectabl e, Madin [place] Canine Kidney, preservative free, quadrivalent Jennifer Zelaya MD Work Phone: [facility] 08-19-2023 zoster vaccine recombinant Jennifer Zelaya MD Work Phone: [facility] 08-19-2023 influenza virus vaccine, unspecified formulation Jennifer Zelaya MD Work Phone: [facility] 04-05-2016 tetanus toxoid, reduced diphtheria toxoid, and acellular pertussis vaccine, adsorbed Qasim Ball Other [employer] Other Payers Date Payer Category Payer [facility] [id number] 2024 Unknown [id number] 2006 Private Health Insurance [id number] 1965 Unknown [id number] [id number] [id number] 1965 Unknown [id number] 2.16.84 [id number] 1965 Unknown [id number] 2.16.84 [id number] 1965 Unknown [id number] 2.16.84 [id number] 1958 [facility] [id number] 1958 Self-pay Social History Date Type Detail Facility Start: 11-17-2023 End: 11-27-2024 Sex Assigned At [employer] Other Start: 11-17-2023 Tobacco smoking status NHIS Smokes tobacco daily [facility] History of tobacco use Cigarette Smoker [facility] Start: 11-17-2023 Tobacco use and exposure Smokeless tobacco non-user [facility] Start: 11-17-2023 End: 11-27-2024 History of Social function [facility] Start: 1965 Sex assigned at Not on file N [facility] Healthcare History of Present illness Narrative [...] Visit: 3 months. documented in this encounter [facility] Healthcare Evaluation note 10-26-2023 Note Date & Type Note Facility 10-26-2023 Evaluation note Encounter Date Diagnosis Assessment Notes Sep, Acute bronchitis due to other specified organisms (ICD-10 - J20.8) Instructed to use Robitussin or Mucinex for cough, saline or Flonase NS for congestion, Tylenol for pain and fever. Sep, Subcutaneous mass (ICD-10 - R22.9) This is not involving the breast. [place] sized [place] mass, smooth, mobile and nontender. N [employer] Other Evaluation note 01-04-2023 Note Date & [...] (ICD-10 - F17.210) Start age 20, 1ppd [employer] Other History general Narrative - Reported 04-25-2018 Note Date & Type Note Facility 04-25-2018 History general N arrative - Reported Type Medical History psoriasis Medical History benign prostatic hyp ertrophy without outflow obstruction 04/25/2018 Medical History tobacco use Medical History salpingitis of left eustachian t ube Surgical History shoulder surgery right 2007 Hospitalization History see surgical history [employer] Other Evaluation note Note Date & Type Note Facility Evaluation note No Information [employer] Other Evaluation note Note Date & Type Note Facility Evaluation note Diagnosis Psoriasis vulgaris ([facility])- Primary Other psoriasis High risk medication use [...] section and content) DATE CREATED AUTHOR 10/26/2019 [facility] DATE CREATED AUTHOR AUTHOR'S ORGANIZ ATION 02/05/2023 [facility] DATE CREATED AUTHOR AUTHOR'S ORGANIZ ATION 11/27/2024 [facility] EPIC REASON FOR VISIT (unrecogniz ed section and content) Reason Comments Follow-up Care Teams (unrecognized sec tion and content) Flash Welder Relationship Specialty Start Date End Date Qasmi Fairchild MD [address] [place] [id number] PCP - General 11/25/24 Flash Welder Relationship Specialty Start Date End Date Qasim Fairchild MD [facility] [place] [address] PCP - General 11/25/24 FOR [...] BE BASED ON THE PRIMARY CLINICAL RECORDS. [facility] [employer] [facility]. provides no warranty or guarantee of the accuracy or completeness of information in this document.
[2024-12-04 06:08] LABS: QuantiFERON-TB Gold Plus Negative (Negative)
== END 2024-11-30 07:12 | disposition home or self-care (01) ==
LOC: LAB 07:13
PROVIDERS: PCP Internal Medicine
DX: L40.0 Psoriasis vulgaris (principal); Z79.899 Other long term (current) drug therapy
CPT/HCPCS: 36415; 86480

== ENCOUNTER 2025-02-11 13:26 | Outpatient (REF) | payer BC, SELFPAY ==
[2025-02-11 14:09] LABS: Aspartate Amino Transferase 95 U/L (15-37); Bilirubin Total 1.3 mg/dL (0.2-1.0)
[2025-02-11 16:35] LABS: Bilirubin Direct 0.9 mg/dL (0.0-0.2)
== END 2025-02-11 13:27 | disposition home or self-care (01) ==
LOC: LAB 13:26
PROVIDERS: PCP Internal Medicine; Visit Provider Surgery
DX: K81.1 Chronic cholecystitis (principal)
CPT/HCPCS: 36415; 82247; 82248; 84450

== ENCOUNTER 2025-10-17 07:11 | Outpatient (OUT) | payer BC, SELFPAY ==
--- OUTSIDE RECORDS SUMMARY | 2025-10-15 11:29 | XMS_ITS | Continuity of Care Document ---
Author Organization [facility] Address [address] [place] [address] Phone Care Team Providers Care Community Relations Representative Name Role Phone Gurinder Qasim STEVENSON Primary Care Provider Qasim Fairchild DO Attending Provider Chris Owen MD Attending Provider Chris Owen MD Other Provider [phone] Care Teams Patient Care Team Team Status: Active Member Role/Relationship Status Dates Qasim Fairchild DO Primary Care Provider Active Visit Care Team Team Status: Inactive Member Role/Relationship Status Dates Qasim Fairchild DO Primary Care Provider Active Start: July 19, 2025 End: July 19Bruno Carlton ProviderActiveStart: July 19, 2025 End: July 19, 2025 Visit Care Team Team Status: Inactive Member Role/Relationship Status Dates Qasim Fairchild DO Primary Care Provider Active Start: September 04, 2025 End: September 04Bruno Carlton ProviderActiveStart: September 04, 2025 End: September 04, 2025 Visit Care Team Team Status: Active Member Role/Relationship Status Dates Qasim Fairchild DO Primary Care Provider Active Start: October 10, 2025 Delfino Pacheco ProviderActiveStart: October 10, 2025 Chrsi Owen MDOther ProviderActiveStart: October 10, 2025 Patient Care Team Team Status: Inactive Member Role/Relationship Status Dates Qasim Fairchild DO Primary Care Provider Active Start: October 15, 2025 End: October 15enhilariajessie Gurinder , DOAttending ProviderActiveStart: October 15, 2025 End: October 15, 2025 Chief Complaint and Reason for Visit Chief Complaint Admit Date Elbow Pain July 19, 2025 10:57am vomiting September 04, 2025 1 :38pm positive cologuard October 10, 2025 8:29am right sided pain October 15, 2025 3:42pm Reason for Visit Admit Date Nicotine addiction July 19, 2025 10:57am Olecranon bursitis of right elbow Septem 2024 10:57am Pulmonary nodule July 19, 2025 10:57am Screening for colon cancer July 10:57am Screening PSA (prostate specific antigen ) July 19, 2025 10:57am Wellness examination July 19 10:57am Nausea & vomiting September 04, 2025 1 :38pm Right upper quadrant abdominal pain Nove 2024 1:38pm S/P cholecystectomy September 04, 2025 1 :38pm Right upper quadrant abdominal pain Dece [facility] 2024 3:42pm S/P cholecystectomy October 15, 2025 3:42pm Allergies, Adverse Reactions, Alerts Allergen Type Severity Reaction Last Updated Verified Status No Known Allergies Allergy Unknown October 15, 2025 3:53pmYesActive Social History Smoking Status Status Start Date End Date Date of Observa tion Smokes tobacco daily (finding) October 10, 2025 8:45am Observation Status Observation Response Date of Response Legal Sex [facility] (finding) [facility] 1965 Family History Relationship Condition Age at Onset Recorded Date/T levi Not Specified No pertinent family history Unknown motherCrohn's diseaseUnknown Problems Active Problems Problem Diagnosis/Recorded Date Onset Date Status C omments Right upper quadrant abdomin al pain September 04, 2025 2:30pm Unknown Active Nicotine addictionMay 2023 10:59amUnknownActiveLDCT: no suspicious nodules - 10/2024Occult blood detected in feces by immunoassayOctober 2024 11:48am UnknownActiveScreening PSA (prostate specific antigen)July 19, 2025 10:32amUnknownActiveScreening for colon cancerSept2024 10:31am UnknownActiveOlecranon bursitis of right elbowSeptember 2024 10:34am UnknownActiveWellness examinationSeptember 2024 6:13amUnknownActive Pulmonary noduleDecember 2023 9:44pmUnknownActiveOverweightDecember 2023 9:32amUnknownActivePsoriasisMay 2023 8:29amUnknownActiveElevated BP without diagnosis of hypertensionMay 2023 11:03amUnknownActiveS/P cholecystectomyMarch 2024 5:43iq8253JmznkdNbklne & vomitingNovember 2024 2:30pmUnknownActiveObesityMay 2023 10:59amUnknownActive Inactive/Resolved Problems Problem Diagnosis/Recorded Date Onset Date Status C omments Cholecystitis January 08, 2025 7:16am Unknown Resolved JaundiceMarch 2024 12:22pmUnknownResolvedresolvedCholelithiasisDecember 2023 9:43pmUnknownResolved Medications Medication Status Dose Units Route Directions Qty Days Refills S tart Date Stop Date End Date Reason(s) Instructions Adherence Amoxicillin-Pot Clavulanate 875-125 mg tablet Discontinued 1 TAB PO Q12H 14 0Apr2024 11:00pmMay 2024 10:59amUrsodiol 300 mg capsuleDiscontinued 300MGPOThree times hcoyc185Hjyus 2024 11:00pmMay 2024 10:59am Bimekizumab-Bkzx (Bimzelx Autoinjector) 160 mg/mL auto-vktbiughDqnrrf917WHQFURMP EVERY 2 MONTHSMay 2024 11:00pmComplies with drug therapyHydrocodone- Acetaminophen 5-325 mg jzbzzkCbbutjoulgjf9GTRHKJ9Y as needed for fqhk5772Bjw 2024November 2024 7:54amInflamed sebaceous cyst Sebaceous cystIxekizumab (Taltz Autoinjector) 80 mg/mL auto-injectorDiscontinued 80MGSUBCUTevery monthFebruary 2024 12:00amMay 2024 11:00amIbuprofen (Advil) 200 mg ruideiRrnxotqsxlmg225MCCPcnsdk 6 to 8 hours as needed for fever or painFeuary 2024 12:00amMay 2024 10:59amRx Discharge Order Notice Ffhfwavttixo0MDUNYZKNFHOYXGAvse56Hvclh 2024 11:00pmApril 2024 7:46am Amoxicillin-Pot Clavulanate 875-125 mg jrdnzcCxzwnpxazkew5JXAGUV55Y565Livsi 2024 [facility] 1:04pmStarts on p.m. dose January 10, then take morning and night until finishedTramadol 50 mg jjxzvgOltjvtswzzus97PUXSL5R as needed for wupg3584Skrbl 2024 11:00pmNey 2024 10:58amCholecystitis Cholecystitis, unspecifiedUstekinumab 45 mg/0.5 mL erealblDkgbakcewjzy29XEUCLQQY As DirectedMay 2023 11:00pmFebruary 2024 1:33pmSemaglutide (Weight Loss) (Wegovy) 0.25 mg/0.5 mL pen injectorDiscontinued0.25MGSUBCUTevery mthi6665 March 14, 2024 11:00pmDe[facility] hospital[facility] 2023 9:33amadminister weeks 1 through 4 of therapyOndansetron Hcl 4 mg kwaohdChjftststcau9JOADQoozo 8 hours as needed for nausea and vomitingDemount graham [facility] 2023 12:00amMay 2024 10:59amPantoprazole 40 mg tablet,delayed release (DR/EC)Ttlvdypgomda80ECWXZkrjv54463Ldqvybkt 5th, 2025 12:00amNoveer 2024 7:53amtake on an empty stomach, 30 minutes prior to bkfstOndansetron 4 mg tablet,iqlvyttjnyelqbIjkculiktvsg8UXHRGpxbg 8 hours as needed for nausea and gtowwrvc6446Uaddgsbn 5th, 2025 12:00amNoveer 2024 7:54am Immunizations Immunization Event Date Not Given Reason Dose Number Peanut Roaster Lot Number Reason(s) Given Vaccine Information Statement (VIS) Detail Administration Location COVID-19 mRNA-1273 (Moderna) January 03, 2021 COVID-19 mRNA-1273 (Moderna)January 31OVID-19 mRNA-1273 (Moderna)September 18, 2021Influenza Quadrivalent PF MDCKOctober 2022Zoster Vaccine Recombinant, AdjuvantedOctober 2022Tetanus, Diphtheria, Pertussis (Tdap) April 05, 2016 Vital Signs Vital Reading Result Reference Range Collection Date/Time Height 72 [in_i] July 19, 2025 10:54fzJlvfmi00.44 kgSeptember 2024 10:07amHeart Rate 69 /ida43-346Lkffdrfqj 2024 10:07amRespiratory rate12 /hjh18-56Khsuxlttc 2024 10:07amBP Kfzgmrym118 mm[Hg]100-140September 2024 10:07amBP Cccpokgtu95 mm[Hg]60-100September 2024 10:07amBMI (Body Mass Index)27.9 kg/g2Juqtdivvn 2024 10:68gvMucfus22 [in_i]September 04, 2025 1:48pmWeight 90.43 kgNovember 2024 1:48pmHeart Rate94 /ult07-775Dpfoxxlj 5th, 2025 1:48pmRespiratory rate12 /fmi20-62Uevljxdf 5th, 2025 1:48pmBP Bdaexzyq312 mm[Hg] 100-140Nov2024 1:48pmBP Memznkrud63 mm[Hg]60-100November 2024 1:48pmBMI (Body Mass Index)27.0 kg/p3Kgfhcpzi 2024 1:68ioVbwiyr91 [in_i] October 10, 2025 8:65mdNndmmj20.35 kgDecember 2024 8:45amHeart Rate70 /emz13-506Qatazpox 2024 10:38amRespiratory rate16 /iwj96-84Obwaskio 2024 10:38amOxygen saturation by Pulse kbtagiqt48 %95-100Decemb2024 10:38amBP Vsknlcki034 mm[Hg]100-140De2024 10:38amBP Utiahsgqs32 mm[Hg]60-100Deceer 2024 10:12qwLprqty68 [in_i]October 15, 2025 3:56pm Lydhrv95.13 kgce2024 3:56pmHeart Zrzg803 /szz41-740GzeremcjOctober 15, 2025 3:56pmRespiratory rate12 /bjd17-63Lzfhzccv 16th, 2025 3:56pmBP Nqvmozei194 mm[Hg]100-140October 15, 2025 3:56pmBP Enphsodxr15 mm[Hg]60-100Dece2024 3:56pmBMI (Body Mass Index)27.5 kg/x4Nshfclyo2024 3:56pm Advance Directives Advance Directive Response Recorded Date/ Time Advance Directives No March 15 9:56am Insurance Providers Guarantor Hussain Dixon Address [address] [facility] [address]Pcrrzmk Info.Home Phone: Coverage Status Update:2025 Payer Group Member ID Coverage Type Subscriber Relationship to Subscriber Effective Date Expiration Date Edwige MACK Id: [id number] L Zelms Id: [id number] [address] [facility] [place] [address] Home Phone: Email: [email or web address] Encounters Encounter Location(s) Arrival/Admit Date Discharge/Departure Date Discharge/Departure Disposition Provider(s) Departed Physician/ Provider Office Visit -[facility] July 19, 2025 10:57am July 19, 2025 11:29am Discharged to home care or self care (routine discharge) Qasim Fairchild DO Departed Physician/ Provider Office Visit -[facility] September 04, 2025 1:38pm September 04, 2025 2:35pm Discharged to home care or self care (routine discharge) Qasim Fairchild DO Non-patient / Non-visit -[facility] amie 2024 8:29am Chris Owen , MDDeparted Physician/Provider [facility] 3:42pmDece2024 4:27pmDischarged to home care or self care (routine discharge)Qasim Fairchild , DO Recent Diagnosis Onset Date Admit Date Nicotine addiction Unknown July 10:57am Olecranon bursitis of right elbow Unknown July 19, 2025 10:57am Pulmonary nodule Unknown July 19, 2025 10:57am Screening for colon cancer Unknown 2024 10:57am Screening PSA (prostate specific antigen) Unknow n July 19, 2025 10:57am Wellness examination Unknown July 012024 10:57am Nausea & vomiting Unknown September 04, 2025 1:38pm Right upper quadrant abdominal pain Unknown September 04, 2025 1:38pm S/P cholecystectomy 2024 1:38pm Right upper quadrant abdominal pain Unknown October 15, 2025 3:42pm S/P cholecystectomy 2024 3:42pm Assessments Diagnosis Onset Date Resolution Status Admit Date Nicotine addiction acuteSept2024 10:57amOlecranon bursitis of right elbowacuteSept2024 10:57amPulmonary noduleacuteSept2024 10:57amScreening for colon canceracuteJuly 19, 2025 10:57amScreening PSA (prostate specific antigen)acuteSept2024 10:57amWellness examinationacute July 19, 2025 10:57amNausea & vomitingacuteSeptember 04, 2025 1:38pmRight upper quadrant abdominal painacuteSeptember 04, 2025 1:38pmS/P cholecystectomy uteSeptember 04, 2025 1:38pmRight upper quadrant abdominal painacute October 15, 2025 3:42pmS/P azabckyakwbmmzb5391nwmtkTlupbnyq 16th, 2025 3:42pm Plan of Treatment Author Qasim Fairchild [facility]AuthoredSeptember 2024 10:36amI have instructed this patient on the recommended lifestyle changes, which includes a low fat, high fiber diet along with a regular exercise routine. I have also reviewed the recommended age-appropriate preventive testing for this patient. I have also reviewed the recommended vaccines for their age and risk factors. This patient has been encouraged to quit tobacco use immediately. They are aware of the hazards associated with tobacco use, including but not limited to respiratory infections, vascular disease and cancers. Scheduled for yearly LDCT chest for lung cancer screening is recommended. LDCT: no suspicious nodules - 10/2024 Instructed on smoking cessation. LDCT: no suspicious nodules: 10/2024 This is an asymptomatic, low risk patient, who is due for a screening colonoscopy. There has been no change in appetite, weight or bowel habits. There is no history of abdominal pain, heartburn, dysphagia, melena or hematochezia. Order for Cologuard printed and faxed I have recommended yearly PSA testing. I have informed him that the PSA can be elevated w/ cancer, infection and enlarged prostates. I have explained to the patient, that If his PSA is elevated, while there are many causes, referral will be recommended to r/o cancer. He would be referred to Urology, who may recommend an MRI, TRUS/bx or possibly continued monitoring. He is agreeable to this plan of action PSA: 1.3 - 08/2018 Small swelling of the right Olecranon bursa. He has full ROM or the right elbow w/o erythema or warmth. Recommend conservative treatment, avoid trauma Author Qasim [facility] CompanyAuthoredNovember 2024 2:38pmInstructed on low fat diet Handouts for GB diet given to patient for guidance. ER for increased pain Instructed on bland diet Push fluids Begin Ondansetron 4mg q 8 hours PRN If symptoms persists, will schedule for Hepatic pf, CBC and RUQ US Author Qasim [facility] CompanyAuthoredDeceer 2024 4:25pms/p cholecystectomy, requiring T-tube placement - 12/2024 RUQ pain w/ tenderness and radiating pain to the back. Flu like symptoms w/ fever but not chills Denies N/V as well as any bowel changes, melena or hematochezia Recommend CT abdomen to r/o abscess, mass or appendicitis ER for increased pain Future Tests Future scheduled test information is unavailable Pending Tests Test Name Ordered Date Scheduled Date Comprehensive Metabolic Panel July 19 10:26am Comprehensive Metabolic PanelDeceer 2024 4:25pm Future Visits Future appointment information is unavailable Future Procedures Procedure Name Ordered Date Scheduled Date Discharge Order October 10, 2025 10:07am Dece mber 2024 10:07am Complete Blood Count Auto Diff July 19, 2025 10:26am Lipid PanelSeptember 2024 10:26amPSA Screen (Yearly Only)July 19, 2025 10:26amAMB CologuardSeptember 2024 10:30amComplete Blood Count Auto DiffDeceer 2024 4:25pm Future Medications Future medication information is unavailable Patient Instructions Instruction Admit Date Know your [facility] Colon Polypectomy Discharge InstructionsDece2024 8:29am
--- OUTSIDE RECORDS SUMMARY | 2025-10-17 07:14 | XMS_ITS | Clinical Summary ---
Author Organization [facility] Healthcare Address [address] [place] [address] Care Team Providers Care Globe Mounter Name Role Phone Qasim Fairchild Primary Care Provider [phone] Allergies No known active allergies Medications MedicationSigDispense QuantityRefillsLast FilledStart DateEnd DateStatus ixekizumab (Taltz) 80 MG/ML injection 11/10/2019Active Bimekizumab-bkzx (Bimzelx) 160 MG/ML solution auto-injector Indications:Psoriasis vulgarisInject 320 mg under the skin See administration instructions Inject 320 mg (TWO 160 mg pens) under the skin at week 0, 4,8 and 12 2 mL 5Active Bimzelx 160 MG/ML solution auto-injector Indications:Psoriasis vulgarisInject 320 mg under the skin every 8 (eight) weeks Inject 320 mg under the skin at week 16 and every 8 weeks thereafter 2 mL 5Active Active Problems ProblemNoted DateDiagnosed DateChronic cftzyhmtyrips64/29/2025Inflamed sebaceous cyst02/19/2025bnormal fpwxpbqzpckwi49/26/2025alculus of gallbladder with acute on chronic cholecystitis without hohczotjloz15/12/2025 Immunizations ImmunizationAdministration DatesNext DueInfluenza, injectable, MDCK, preservative free, keouygvflmou07/20/2023Zoster, Ldkemqbfqmc38/20/2023 Social History Tobacco UseTypesPacks/DayYears UsedDateSmoking Tobacco: Every DayCigarettes Smokeless Tobacco: Never Tobacco Cessation:Ready to Q uit: Not Asked; Counseling Given: Not Answered Alcohol UseStandard Drinks/WeekCommentsNever0 (1 standard drink = 0.6 oz pure alcohol)Sex and Gender InformationValueDate RecordedSex Assigned at BirthNot on fileLegal PkpMxeu5201/12/2023 7:26 PM EDTGender IdentityNot on fileSexual OrientationNot on file Last Filed Vital Signs Vital SignReadingTime TakenCommentsBlood Jihcgfhq250/8002/09/2025 10:40 AM EST Pulse--Temperature--Respiratory Rate--Oxygen Saturation--Inhaled Oxygen Concentration--Notnhz87.3 kg (219 lb)03/28/2025 2:17 PM AAXSnovjj433.9 cm (6') 03/28/2025 2:17 PM EDTBody Mass Index29.7003/28/2025 2:17 PM EDT Plan of Treatment DateTypeDepartmentCare Team (Latest Contact Info)Zaeyyjfqivu95/15/2026 10:45 AM ESTOffice Visit [facility] [address] [place] [address] Jennifer Quinones MD [address] [place] [address] Health MaintenanceDue DateLast DoneCommentsCT Vqjpvdoesvcv33/01/1967Colonoscopy 1965Colorectal Cancer Biqvatqrh22/01/1967FIT-DNA1966FIT1965 FOBT1965 6544Sxjcvcppvogzj00/01/1966COVID-19 Vaccine ( season) , 01/31/2021, 01/03/2021Influenza Vaccine (#1)2025 08/19/2023, 08/19/2021neumococcal Vaccine: Pediatrics (0 to 5 Years) and At- Risk Patients (6 to 64 Years)Aged OutNo longer eligible based on patient's age to complete this topic Insurance Care Teams Team MemberRelationshipSpecialtyStart DateEnd Date Qasim Fairchild DO [address] [place] [address] PCP - GeneralInternal Medicine02/13/25
[2025-10-17 07:36] LABS: Hematocrit 45.4 % (42.0-54.0); Hemoglobin 15.0 g/dL (14.0-18.0); Immature Granulocytes Abs Auto 0.08 10^3/uL (0.00-0.03); Immature Granulocytes Pct Auto 0.5 % (0.0-0.5); Lymphocytes Absolute Auto 1.8 10^3/uL (1.2-3.8); Mean Corpuscular HGB Conc 33.0 g/dL (29.9-35.2); Mean Corpuscular Hemoglobin 28.8 pg (25.9-34.0); Mean Corpuscular Volume 87.1 fL (80.0-94.0); Platelet Count 358 10^3/uL (150-450); Red Blood Count 5.21 10^6/uL (4.70-6.10); White Blood Count 15.1 10^3/uL (4.0-11.0)
[2025-10-17 07:47] LABS: Alanine Aminotransferase 24 U/L (16-63); Albumin Globulin Ratio 0.7; Albumin Level 3.3 g/dL (3.4-5.0); Alkaline Phosphatase 97 U/L (46-116); Anion Gap 12.9; Aspartate Amino Transferase 13 U/L (15-37); Blood Urea Nitrogen 16.0 mg/dL (7.0-18.0); Calcium 9.2 mg/dL (8.5-10.1); Carbon Dioxide 28.2 mmol/L (21.0-32.0); Chloride 102 mmol/L (98-107); Estimated GFR (African America >60 (>=60 mL/min/1.73m^2); Estimated GFR (Non-African Ame >60 (>=60 mL/min/1.73m^2); Globulin 5.0 g/dL; Glucose 137 mg/dL (74-106); Potassium 4.1 mmol/L (3.5-5.1); Sodium 139 mmol/L (136-145); Total Protein 8.3 g/dL (6.4-8.2)
== END 2025-10-17 07:12 | disposition home or self-care (01) ==
LOC: LAB 07:12
PROVIDERS: PCP Internal Medicine; Visit Provider Internal Medicine
DX: R10.11 Right upper quadrant pain (principal); Z90.49 Acquired absence of other specified parts of digestive tract
CPT/HCPCS: 36415; 80053; 85025

== ENCOUNTER 2025-10-24 18:21 | Emergency (ER) | payer BC, SELFPAY ==
[2025-10-24 18:28] VITALS: BP 151/100; PULSE 88; TEMP 36.7; O2SAT 99; BMI 27.1
[2025-10-24 18:41] LABS: Hematocrit 43.3 % (42.0-54.0); Hemoglobin 14.1 g/dL (14.0-18.0); Mean Corpuscular HGB Conc 32.6 g/dL (29.9-35.2); Mean Corpuscular Hemoglobin 28.3 pg (25.9-34.0); Mean Corpuscular Volume 86.9 fL (80.0-94.0); Platelet Count 385 10^3/uL (150-450); Red Blood Count 4.98 10^6/uL (4.70-6.10); White Blood Count 20.8 10^3/uL (4.0-11.0)
--- NOTE | 2025-10-24 18:52 | ED_ITS ---
HPI HPI - General Adult General Chief complaint: Abdominal Pain Stated complaint: Abdominal Pain Time Seen by Provider: 10/24/25 18:27 Source: patient Mode of arrival: walk-in Limitations: no limitations History of Present Illness HPI narrative: Patient is a 59-year-old male presenting to the emergency department for evaluation of right upper quadrant abdominal pain. Patient states that he has had intermittent pain in the right upper quadrant for the last 2 months. He states his symptoms started while he was on a trip to [facility]. Over the last 3 weeks, the pain in the right upper quadrant has progressively worsened. He states it is sharp in nature and feels like when he had his gallbladder removed. He denies associated nausea or vomiting. No fevers or chills. No chest pain o r shortness of breath. Denies any other intra-abdominal surgeries. He is otherwise healthy with no chronic medical conditions and takes no daily prescription medications. He denies alcohol use. Related Data Home Medications ?Medication ?Instructions ?Recorded ?Confirmed No Known Home Medications 10/24/2510/01 Allergies Allergy/AdvReac Type Severity Reaction Status Date / Time No Known Drug Allergies Allergy Verified 10/24/25 18:28 Opioid HPI Opioid Management Most Recent Opioid Data: Last Pain Scale 8 Today, 18:28 Review of Systems ROS Status of ROS 10 or more systems reviewed and unremark able except as noted in history and below PFSH PFSH Social History Little interest or pleasure in doing things: not at all Feeling down, depressed, or hopeless: not at all Exam Narrative Exam Narrative: CONSTITUTIONAL: Well-appearing, answering questions and following commands appropriately SKIN: Was warm and dry. EYES: Sclerae white. EARS, NOSE, THROAT: Moist oral mucosa. RESPIRATORY: Clear to auscultation bilaterally, no wheezes, crackles, or stridor, no use of accessory muscles CARDIOVASCULAR: Normal rate and regular rhythm. There is no S3, S4, murmur, rub. GASTROINTESTINAL: There is tenderness to palpation in the right upper quadrant. No rebound tenderness or guarding. Multiple healed surgical incisions on his abdomen. MUSCULOSKELETAL: No peripheral edema. NEUROLOGIC: Patient is awake and alert. Facies were symmetrical. Constitutional Vital Signs, click to edit/add: Last Vital Signs Temp 98.1 F 10/24/25 18:28 Pulse 88 10/24/25 18:28 Resp 18 10/24/25 18:28 BP 151/100 H 10/24/25 18:28 Pulse Ox 99 10/24/25 18:28 O2 Del Method Room Air 10/24/25 18:28 Course Vital Signs Vital signs: Vital Signs Temperature 98.1 F 10/24/25 18:28 Pulse Rate 88 10/24/25 18:28 Respiratory Rate 18 10/24/25 18:28 Blood Pressure 151/100 H 10/24/25 18:28 Pulse Oximetry 99 10/24/25 18:28 Oxygen Delivery Method Room Air 10/24/25 18:28 Temperature 98.1 F 10/24/25 18:28 Pulse Rate 88 10/24/25 18:28 Respiratory Rate 18 10/24/25 18:28 Blood Pressure 151/100 H 10/24/25 18:28 Pulse Oximetry 99 10/24/25 18:28 Oxygen Delivery Method Room Air 10/24/25 18:28 Medical Decision Making MDM Narrative Medical decision making narrative: Patient is a 59-year-old male, history significant for prior cholecystectomy, presenting to the emergency department with a 2-month history of progressively worsening right upper quadrant abdominal pain. Vital signs on arrival are significant for mild hypertension, otherwise within normal limits. He is afebrile and hemodynamically stable. Semination as noted above, however is notable for tenderness in the right upper quadrant without peritoneal signs. Differential diagnosis includes hepatitis, pancreatitis, nephrolithiasis, complications related to prior cholecystectomy, or other intra-abdominal pathologies. IV was established and laboratory studies were obtained. CT abdomen/pelvis with IV contrast was ordered. He was treated with IV Dilaudid. Patient care will be transferred to Dr. Ramirez. At the time of signout, laboratory studies and CT abdomen/pelvis was pending. FINAL IMPRESSION: #Acute right upper abdominal pain DISPOSITION: Signed out to oncoming ED physician CONDITION: Good Lab Data Lab results reviewed: Yes I reviewed the patient's lab results Labs: Lab Results 10/24/25 Range/Units 18:30 WBC 20.8 H (4.0-11.0) 10^3/uL RBC 4.98 (4.70-6.10) 10^6/uL Hgb 14.1 (14.0-18.0) g/dL Hct 43.3 (42.0-54.0) % MCV 86.9 (80.0-94.0) fL MCH 28.3 (25.9-34.0) pg MCHC 32.6 (29.9-35.2) g/dL RDW 13.0 (11.0-15.0) % Plt Count 385 (150-450) 10^3/uL MPV 9.6 (9.5-13.5) fL Discharge Plan Discharge Patient Disposition: Still a Patient
[2025-10-24 18:56] LABS: Alanine Aminotransferase 21 U/L (16-63); Albumin Globulin Ratio 0.6; Albumin Level 3.1 g/dL (3.4-5.0); Alkaline Phosphatase 93 U/L (46-116); Anion Gap 11.7; Aspartate Amino Transferase 13 U/L (15-37); Blood Urea Nitrogen 14.0 mg/dL (7.0-18.0); Calcium 9.2 mg/dL (8.5-10.1); Carbon Dioxide 27.6 mmol/L (21.0-32.0); Chloride 104 mmol/L (98-107); Estimated GFR (African America >60 (>=60 mL/min/1.73m^2); Estimated GFR (Non-African Ame >60 (>=60 mL/min/1.73m^2); Globulin 5.2 g/dL; Glucose 126 mg/dL (74-106); Lipase 26.0 U/L (16.0-77.0); Potassium 4.3 mmol/L (3.5-5.1); Sodium 139 mmol/L (136-145); Total Protein 8.3 g/dL (6.4-8.2)
--- OUTSIDE RECORDS SUMMARY | 2025-10-24 18:57 | XMS_ITS | Clinical Summary ---
Author Organization [facility] Healthcare Address [address] [place] [address] Care Team Providers Care Battery Recharger Name Role Phone Qasim Fairchild Primary Care Provider [phone] Allergies No known active allergies Medications MedicationSigDispense [...] mL 5Active Active Problems ProblemNoted DateDiagnosed DateChronic roxbzsgpaqdlm22/29/2025Inflamed sebaceous cyst02/19/2025bnormal lrpezpwargvse43/26/2025alculus of gallbladder with acute on chronic cholecystitis without bzahchwibih13/12/2025 Immunizations ImmunizationAdministration DatesNext DueInfluenza, injectable, MDCK, preservative free, gdiurmmnaefk76/20/2023Zoster, Smactldzboh65/20/2023 Social History Tobacco UseTypesPacks/DayYears UsedDateSmoking Tobacco: Every DayCigarettes Smokeless Tobacco: Never Tobacco Cessation:Ready to Q uit: Not Asked; Counseling Given: Not Answered Alcohol UseStandard Drinks/WeekCommentsNever0 (1 standard drink = 0.6 oz pure alcohol)Sex and Gender InformationValueDate RecordedSex Assigned at BirthNot on fileLegal UxgGslx0601/12/2023 7:26 PM EDTGender IdentityNot on fileSexual OrientationNot on file Last Filed Vital Signs Vital SignReadingTime TakenCommentsBlood Fklapzcu921/8002/09/2025 10:40 AM EST Pulse--Temperature--Respiratory Rate--Oxygen Saturation--Inhaled Oxygen Concentration--Vsnpvp55.3 kg (219 lb)03/28/2025 2:17 PM SROYldobl575.9 cm (6') 03/28/2025 2:17 PM EDTBody Mass Index29.7003/28/2025 2:17 PM EDT Plan of Treatment DateTypeDepartmentCare Team (Latest Contact Info)Ixbgohqxlnf17/15/2026 10:45 AM ESTOffice Visit [facility] [address] [place] [address] Jennifer Quinones MD [address] [place] [address] Health MaintenanceDue DateLast DoneCommentsCT Hwjytbtnkrxg16/01/1967Colonoscopy 1966Colorectal Cancer Wmkpjsxgm00/01/1967FIT-DNA1966FIT1966 FOBT1966 4712Blylmyxxqxguh31/01/1967Influenza Vaccine (#1)51, 08/19/2021neumococcal Vaccine: Pediatrics (0 to 5 Years) and At-Risk Patients (6 to 64 Years)Aged OutNo longer eligible based on patient's age to complete this topic Insurance Care Teams Team MemberRelationshipSpecialtyStart DateEnd Date Qasim Fairchild DO [address] [place] [address] PCP - GeneralInternal Medicine02/13/25
[2025-10-24] MEDS: HYDROMORPHONE HCL 0.5 MG/0.5 ML SYRINGE IV ×2 (18:59→23:17)
[2025-10-24 19:05] LABS: Basophils Abs Manual 0.00 10^3/uL (0.00-0.10); Basophils Percent Manual 0.0 % (0.2-2.0); Eosinophils Absolute Manual 0.41 10^3/uL (0.00-0.70); Eosinophils Percent Manual 2.0 % (0.9-7.0); Lymphocytes Absolute Manual 2.70 10^3/uL (1.20-3.80); Lymphocytes Percent Manual 13.0 % (20.5-60.0); Monocytes Absolute Manual 2.08 10^3/uL (0.30-0.80); Monocytes Percent Manual 10.0 % (1.7-12.0); Segmented Neut Absolute Manual 15.60 10^3/uL (1.4-6.5); Segmented Neutrophils % Manual 75.0 (43.0-75.0)
[2025-10-24 19:41] VITALS: BP 134/71; PULSE 98; O2SAT 97
[2025-10-24] MEDS: PIPERACILLIN SODIUM/TAZOBACTAM 3.375 GM in 0.9 % SODIUM CHLORIDE 50 ML IV (21:59)
[2025-10-24 23:21] VITALS: BP 133/74; PULSE 90; O2SAT 96
== END 2025-10-24 23:39 | disposition short-term general hospital (02) ==
PROVIDERS: Emergency Provider Student in an Organized Health Care Education/Training Program; PCP Internal Medicine
DX: K65.1 Peritoneal abscess (principal); Z90.49 Acquired absence of other specified parts of digestive tract
CPT/HCPCS: 36415; 74177; 80053; 83690; 85007; 85027; 96365; 96375; 96376; 99285; J1171; J2543; Q9967